=== PATIENT | female | born 1960 | race Caucasian/White ===

== ENCOUNTER 2017-08-16 15:06 | Emergency (ER) | payer OTHER ==
[~2017-08-16] VITALS: Ht 154.9 cm; Wt 54.4 kg
[~2017-08-16 15:06] MED LIST: ACET325; ALBU90OI INH; ALBU90OI6 INH; AZIT250 PO; AZIT500 PO; Ativan0.5 MG PO; Augmentin 875-1 EACH PO; B Complete1 EACH; BUDE.5 NEB; BUPR150ER PO; CETI5 PO; CODGUAEL PO; DIAZ10 PO; Duoneb 2.5-0.5 M3 ML INH; FAMO20 PO; FLUO10 PO; FLUSAL2505; FLUSAL2505 INH; GABA100 PO; GUAI600T33 PO; HYDR1TAB94 PO; IBUP800; IBUP800 PO; LORA.5 PO; LORA1 PO; METCAR500 PO; METCAR750 PO; METPRE4DP PO; MIRT15 PO; MONT10T PO; MORP15ER PO; MORP30ER PO; MORP60ER PO; NAC500 MG PO; NICO7 TOP; NYST100SU SS; Norco 5-325 Ta1 EACH PO; OMEP20ER; OXYACE5T PO; Omeprazole20 M1; Omeprazole20 M1 PO; POTCHL20ER PO; PRED10 PO; PRED20; PRED20 PO; PROAIR RESPICL90 MCG INH; PROM25 PO; Prednisone20 MG PO; Prednisone50 MG PO; Robaxin-750750 MG PO; SERT100 PO; TIOT18 INH; TRAM50 PO; Tylenol325 MG PO; Ultram50 MG PO; Ventolin5 MG/1 ML INH; ZYRTEC10 M2 PO; Zithromax250 MG PO
[2017-08-16 15:48] LABS: BASOPHILS ABSOLUTE AUTO 0.05 K/mm3 (0.00-0.23); BASOPHILS PERCENT AUTO 1 % (0-2); EOSINOPHILS PERCENT AUTO 4 % (0-6); Hematocrit 44.9 % (33.0-51.0); Hemoglobin 14.9 g/dL (11.5-16.0); IMMATURE GRAN ABSOLUTE AUTO 0.07 K/mm3 (0.00-0.10); IMMATURE GRAN PERCENT AUTO 1 % (0-1); LYMPHOCYTES ABSOLUTE AUTO 2.93 K/mm3 (0.84-5.20); LYMPHOCYTES PERCENT AUTO 35 % (21-46); MONOCYTES ABSOLUTE AUTO 0.77 K/mm3 (0.16-1.47); MONOCYTES PERCENT AUTO 9 % (4-13); Mean Corpuscular HGB Conc 33.2 g/dL (31.5-36.5); Mean Corpuscular Volume 99 fL (80-100); Mean Platelet Volume 10.7 fL (9.1-12.4); NEUTROPHILS ABSOLUTE AUTO 4.18 K/mm3 (1.96-9.15); NEUTROPHILS PERCENT AUTO 50 % (41-73); Platelet Count 215 K/mm3 (150-400); RDW Coefficient Variation 14.3 % (11.7-14.2); RDW Standard Deviation 51.5 fL (35.1-46.3); Red Blood Cell Count 4.52 M/mm3 (3.80-5.20)
[2017-08-16] MEDS ORDERED: LEVFLO500 PO (16:20)
[2018-06-26] MEDS ORDERED: K-Dur20 MEQ PO (12:17)
[2018-06-26] MEDS ORDERED: MAGOXI400 PO (12:19)
[2018-06-26] MEDS ORDERED: Prednisone20 MG PO (12:19)
== END 2017-08-16 16:35 | disposition home or self-care (01) ==
LOC: ER 15:06
PROVIDERS: Internal Medicine
DX: J44.1 Chronic obstructive pulmonary disease with (acute) exacerbation (principal); F41.9 Anxiety disorder, unspecified; F17.210 Nicotine dependence, cigarettes, uncomplicated; Z79.899 Other long term (current) drug therapy; Z87.01 Personal history of pneumonia (recurrent); Z85.89 Personal history of malignant neoplasm of other organs and systems
CPT/HCPCS: 36415; 71020; 85025; 94640; 99283; J1100

== ENCOUNTER 2017-08-20 21:10 | Emergency (ER) | payer OTHER ==
[~2017-08-20] VITALS: Ht 154.9 cm; Wt 52.2 kg
[~2017-08-20 21:10] MED LIST changes: +LEVFLO500 PO
[2017-08-20 21:36] LABS: BASOPHILS ABSOLUTE AUTO 0.01 K/mm3 (0.00-0.23); BASOPHILS PERCENT AUTO 0 % (0-2); EOSINOPHILS ABSOLUTE AUTO 0.01 K/mm3 (0.00-0.68); EOSINOPHILS PERCENT AUTO 0 % (0-6); Hematocrit 48.8 % (33.0-51.0); Hemoglobin 16.5 g/dL (11.5-16.0); IMMATURE GRAN ABSOLUTE AUTO 0.02 K/mm3 (0.00-0.10); IMMATURE GRAN PERCENT AUTO 0 % (0-1); LYMPHOCYTES ABSOLUTE AUTO 2.39 K/mm3 (0.84-5.20); LYMPHOCYTES PERCENT AUTO 37 % (21-46); MONOCYTES ABSOLUTE AUTO 0.66 K/mm3 (0.16-1.47); MONOCYTES PERCENT AUTO 10 % (4-13); Mean Corpuscular HGB 33.2 pg (26.0-34.0); Mean Corpuscular HGB Conc 33.8 g/dL (31.5-36.5); Mean Corpuscular Volume 98 fL (80-100); Mean Platelet Volume 10.7 fL (9.1-12.4); NEUTROPHILS ABSOLUTE AUTO 3.37 K/mm3 (1.96-9.15); NEUTROPHILS PERCENT AUTO 52 % (41-73); Platelet Count 293 K/mm3 (150-400); RDW Coefficient Variation 14.3 % (11.7-14.2); RDW Standard Deviation 51.3 fL (35.1-46.3); Red Blood Cell Count 4.97 M/mm3 (3.80-5.20); White Blood Cell Count 6.46 K/mm3 (4.00-11.30)
[2017-08-20 21:58] LABS: Alanine Aminotransfer (ALT/SGP 55 U/L (12-78); Albumin, Blood 3.8 g/dL (3.4-5.0); Albumin/Globulin Ratio 0.9 (0.8-1.8); Alk Phos 129 U/L (50-136); Anion Gap 6 mmol/L (6-16); Aspartate Aminotrans (AST/SGOT 52 U/L (12-37); Bilirubin, Total 0.3 mg/dL (0.1-1.0); Blood Urea Nitrogen 3 mg/dL (8-24); Bun/Creatinine Ratio 5.6 (12.0-20.0); CO2, Blood 33 mmol/L (21-32); Calcium, Blood 8.6 mg/dL (8.5-10.1); Chloride, Blood 102 mmol/L (98-108); Creatinine, Blood 0.53 mg/dL (0.40-1.00); Ethanol (Alcohol), Blood, Med 308 mg/dL; Globulin, Blood 4.4 g/dL (2.2-4.0); Glomerular Filtration Rate >60 (60-); Glucose, Blood 119 mg/dL (70-99); Potassium, Blood 3.8 mmol/L (3.5-5.5); Sodium, Blood 141 mmol/L (136-145); Total Protein, Blood 8.2 g/dL (6.4-8.2)
[2017-08-20] MEDS ORDERED: Prednisone50 MG PO (23:03)
[2017-08-20] MEDS ORDERED: ARTIFICIAL TEAR15 ML BOTHEYES (23:03)
[2017-08-20] MEDS ORDERED: VALACYCLOVIR1000 MG PO (23:03)
[2018-06-26] MEDS ORDERED: K-Dur20 MEQ PO (12:17)
[2018-06-26] MEDS ORDERED: Prednisone20 MG PO (12:19)
[2018-06-26] MEDS ORDERED: MAGOXI400 PO (12:19)
== END 2017-08-20 23:50 | disposition home or self-care (01) ==
LOC: ER 21:10
PROVIDERS: Emergency Medicine
DX: G51.0 Bell's palsy (principal); J44.9 Chronic obstructive pulmonary disease, unspecified; Z88.8 Allergy status to other drugs, medicaments and biological substances; Z79.899 Other long term (current) drug therapy; Z79.2 Long term (current) use of antibiotics; F41.9 Anxiety disorder, unspecified; Z85.44 Personal history of malignant neoplasm of other female genital organs; F17.210 Nicotine dependence, cigarettes, uncomplicated; Z87.01 Personal history of pneumonia (recurrent)
CPT/HCPCS: 36415; 80053; 82947; 85025; 94640; 99284; G0480

== ENCOUNTER 2017-11-10 08:04 | Emergency (ER) | payer OTHER ==
[~2017-11-10] VITALS: Ht 154.9 cm; Wt 54.4 kg
[~2017-11-10 08:04] MED LIST changes: +ARTIFICIAL TEAR15 ML BOTHEYES; +VALACYCLOVIR1000 MG PO
[2017-11-10] MEDS ORDERED: NAC500 MG PO (08:37)
[2017-11-10] MEDS ORDERED: DOXY100T53 (08:38)
[2017-11-10] MEDS ORDERED: Ultram50 MG PO (09:02)
[2018-06-26] MEDS ORDERED: K-Dur20 MEQ PO (12:17)
[2018-06-26] MEDS ORDERED: MAGOXI400 PO (12:19)
[2018-06-26] MEDS ORDERED: Prednisone20 MG PO (12:19)
== END 2017-11-10 09:20 | disposition home or self-care (01) ==
LOC: ER 08:04
DX: S30.0XXA Contusion of lower back and pelvis, initial encounter (principal); J44.9 Chronic obstructive pulmonary disease, unspecified; F32.9 Major depressive disorder, single episode, unspecified; K21.9 Gastro-esophageal reflux disease without esophagitis; F17.210 Nicotine dependence, cigarettes, uncomplicated; Z79.899 Other long term (current) drug therapy; Z79.51 Long term (current) use of inhaled steroids; Y08.89XA Assault by other specified means, initial encounter
CPT/HCPCS: 99282

== ENCOUNTER 2017-12-08 13:57 | Emergency (ER) | payer OTHER ==
[~2017-12-08] VITALS: Ht 154.9 cm; Wt 54.4 kg
[~2017-12-08 13:57] MED LIST changes: +DOXY100T53
[2017-12-08 14:53] LABS: BASOPHILS PERCENT AUTO 1 % (0-2); EOSINOPHILS ABSOLUTE AUTO 0.09 K/mm3 (0.00-0.68); EOSINOPHILS PERCENT AUTO 1 % (0-6); Hematocrit 47.2 % (33.0-51.0); Hemoglobin 15.7 g/dL (11.5-16.0); IMMATURE GRAN ABSOLUTE AUTO 0.03 K/mm3 (0.00-0.10); IMMATURE GRAN PERCENT AUTO 0 % (0-1); LYMPHOCYTES ABSOLUTE AUTO 3.42 K/mm3 (0.84-5.20); LYMPHOCYTES PERCENT AUTO 33 % (21-46); MONOCYTES ABSOLUTE AUTO 1.06 K/mm3 (0.16-1.47); MONOCYTES PERCENT AUTO 10 % (4-13); Mean Corpuscular HGB 32.8 pg (26.0-34.0); Mean Corpuscular HGB Conc 33.3 g/dL (31.5-36.5); Mean Corpuscular Volume 99 fL (80-100); Mean Platelet Volume 10.8 fL (9.1-12.4); NEUTROPHILS ABSOLUTE AUTO 5.83 K/mm3 (1.96-9.15); NEUTROPHILS PERCENT AUTO 55 % (41-73); Platelet Count 272 K/mm3 (150-400); RDW Coefficient Variation 13.7 % (11.7-14.2); Red Blood Cell Count 4.79 M/mm3 (3.80-5.20); White Blood Cell Count 10.53 K/mm3 (4.00-11.30)
[2017-12-08 15:29] LABS: Albumin, Blood 3.5 g/dL (3.4-5.0); Alk Phos 117 U/L (50-136); Anion Gap 9 mmol/L (6-16); Aspartate Aminotrans (AST/SGOT 51 U/L (12-37); Bilirubin, Total 0.4 mg/dL (0.1-1.0); Blood Urea Nitrogen 5 mg/dL (8-24); Bun/Creatinine Ratio 8.3 (12.0-20.0); CO2, Blood 26 mmol/L (21-32); Calcium, Blood 8.5 mg/dL (8.5-10.1); Chloride, Blood 107 mmol/L (98-108); Glomerular Filtration Rate >60 (60-); Glucose, Blood 109 mg/dL (70-99); Potassium, Blood 3.9 mmol/L (3.5-5.5); Sodium, Blood 142 mmol/L (136-145)
[2017-12-08 15:56] LABS: Alanine Aminotransfer (ALT/SGP 40 U/L (12-78); Albumin/Globulin Ratio 0.8 (0.8-1.8); Globulin, Blood 4.2 g/dL (2.2-4.0); Total Protein, Blood 7.7 g/dL (6.4-8.2)
[2017-12-08] MEDS ORDERED: Prednisone20 MG PO (16:16)
== END 2017-12-08 16:55 | disposition home or self-care (01) ==
LOC: ER 13:57
PROVIDERS: Emergency Medicine
DX: J44.1 Chronic obstructive pulmonary disease with (acute) exacerbation (principal); Z88.8 Allergy status to other drugs, medicaments and biological substances; Z79.899 Other long term (current) drug therapy; F41.9 Anxiety disorder, unspecified; F17.210 Nicotine dependence, cigarettes, uncomplicated
CPT/HCPCS: 36415; 71045; 80053; 85025; 93005; 93010; 94640; 99283

== ENCOUNTER 2018-01-25 16:55 | Emergency (ER) | payer OTHER ==
[~2018-01-25] VITALS: Ht 154.9 cm; Wt 55.3 kg
== END 2018-01-25 17:42 | disposition left against medical advice (07) ==
LOC: ER 16:55
DX: S00.83XA Contusion of other part of head, initial encounter (principal); S00.31XA Abrasion of nose, initial encounter; W18.30XA Fall on same level, unspecified, initial encounter; Z88.8 Allergy status to other drugs, medicaments and biological substances; Z79.899 Other long term (current) drug therapy; J44.9 Chronic obstructive pulmonary disease, unspecified; F41.9 Anxiety disorder, unspecified; F17.210 Nicotine dependence, cigarettes, uncomplicated
CPT/HCPCS: 99282

== ENCOUNTER 2018-02-04 16:05 | Emergency (ER) | payer OTHER ==
[~2018-02-04] VITALS: Ht 165.1 cm; Wt 55.3 kg
[2018-02-04] MEDS ORDERED: PARO10 (16:48)
[2018-02-04] MEDS ORDERED: Augmentin 875-1 EACH PO (17:57)
[2018-02-04] MEDS ORDERED: Percocet 5-3251 EACH PO (17:57)
== END 2018-02-04 18:33 | disposition home or self-care (01) ==
LOC: ER 16:05
DX: S51.852A Open bite of left forearm, initial encounter (principal); J44.9 Chronic obstructive pulmonary disease, unspecified; F17.210 Nicotine dependence, cigarettes, uncomplicated; Z88.8 Allergy status to other drugs, medicaments and biological substances; Z79.899 Other long term (current) drug therapy; W54.0XXA Bitten by dog, initial encounter
CPT/HCPCS: 12001; 99283

== ENCOUNTER 2018-02-21 13:52 | Emergency (ER) | payer OTHER ==
[~2018-02-21] VITALS: Ht 154.9 cm; Wt 56.7 kg
[~2018-02-21 13:52] MED LIST changes: +PARO10; +Percocet 5-3251 EACH PO
== END 2018-02-21 14:23 | disposition home or self-care (01) ==
LOC: ER 13:52
DX: S51.852D Open bite of left forearm, subsequent encounter (principal); S51.851D Open bite of right forearm, subsequent encounter; J44.9 Chronic obstructive pulmonary disease, unspecified; F41.9 Anxiety disorder, unspecified; F17.200 Nicotine dependence, unspecified, uncomplicated; Z88.8 Allergy status to other drugs, medicaments and biological substances; Z79.899 Other long term (current) drug therapy

== ENCOUNTER 2018-07-29 10:56 | Inpatient (IN) | payer OTHER ==
[~2018-07-29] VITALS: Ht 154.9 cm; Wt 55.4 kg
[~2018-07-29 10:56] MED LIST changes: +K-Dur20 MEQ PO; +MAGOXI400 PO
[2018-07-29 11:48] LABS: BASOPHILS ABSOLUTE AUTO 0.03 K/mm3 (0.00-0.23); BASOPHILS PERCENT AUTO 1 % (0-2); EOSINOPHILS ABSOLUTE AUTO 0.03 K/mm3 (0.00-0.68); EOSINOPHILS PERCENT AUTO 1 % (0-6); Hematocrit 41.3 % (33.0-51.0); Hemoglobin 13.9 g/dL (11.5-16.0); IMMATURE GRAN ABSOLUTE AUTO 0.02 K/mm3 (0.00-0.10); IMMATURE GRAN PERCENT AUTO 0 % (0-1); LYMPHOCYTES PERCENT AUTO 13 % (21-46); MONOCYTES ABSOLUTE AUTO 0.89 K/mm3 (0.16-1.47); MONOCYTES PERCENT AUTO 15 % (4-13); Mean Corpuscular HGB 34.6 pg (26.0-34.0); Mean Corpuscular HGB Conc 33.7 g/dL (31.5-36.5); Mean Corpuscular Volume 103 fL (80-100); Mean Platelet Volume 10.7 fL (9.1-12.4); NEUTROPHILS ABSOLUTE AUTO 4.19 K/mm3 (1.96-9.15); NEUTROPHILS PERCENT AUTO 70 % (41-73); Platelet Count 216 K/mm3 (150-400); RDW Coefficient Variation 13.8 % (11.7-14.2); RDW Standard Deviation 52.6 fL (35.1-46.3); Red Blood Cell Count 4.02 M/mm3 (3.80-5.20); White Blood Cell Count 5.96 K/mm3 (4.00-11.30)
[2018-07-29 11:53] LABS: Alanine Aminotransfer (ALT/SGP 38 U/L (12-78); Albumin, Blood 3.1 g/dL (3.4-5.0); Albumin/Globulin Ratio 0.8 (0.8-1.8); Alk Phos 143 U/L (50-136); Anion Gap 8 mmol/L (6-16); Aspartate Aminotrans (AST/SGOT 71 U/L (12-37); Bilirubin, Total 0.5 mg/dL (0.1-1.0); Blood Urea Nitrogen 5 mg/dL (8-24); Bun/Creatinine Ratio 8.8 (12.0-20.0); CO2, Blood 29 mmol/L (21-32); Chloride, Blood 105 mmol/L (98-108); Creatinine, Blood 0.57 mg/dL (0.40-1.00); Globulin, Blood 3.7 g/dL (2.2-4.0); Glomerular Filtration Rate >60 (60-); Glucose, Blood 103 mg/dL (70-99); Potassium, Blood 3.2 mmol/L (3.5-5.5); Sodium, Blood 142 mmol/L (136-145); Total Protein, Blood 6.8 g/dL (6.4-8.2); Troponin I <0.015 ng/mL (0.000-0.040)
[2018-07-29 11:56] LABS: Influenza A Negative (NEGATIVE); Influenza B Negative (NEGATIVE)
[2018-07-29] MEDS ORDERED: IBUP800 PO (17:13)
[2018-07-29] MEDS ORDERED: TYLENOL PM PO (17:15)
--- NOTE | 2018-07-29 18:47 | NUR ---
CALLED [facility] PALIATIVE CARE CONSULT
--- NOTE | 2018-07-29 18:49 | NUR ---
PT ADMIT DONE, PT RESTING IN ROOM. EATING DINNER. LUNGS COARSE. NO DISTRESS REPORTED. H/R REG, NO TELE. BED IN LOW POSITION, CALL LITE IN REACH, CALLS APPROP.
[2018-07-29 21:58] LABS: Adenovirus F 40/41 Not Detected (NOT DETECT); Astrovirus Not Detected (NOT DETECT); Campylobacter Sp Not Detected (NOT DETECT); Cryptosporidium Not Detected (NOT DETECT); Cyclospora Cayetanensis Not Detected (NOT DETECT); E. Coli O157 Not Detected (NOT DETECT); Entamoeba Histolytica Not Detected (NOT DETECT); Enteroaggregative E. coli-EAEC Not Detected (NOT DETECT); Enteropathogenic E. coli-EPEC Not Detected (NOT DETECT); Enterotoxigenic E. coli-ETEC Not Detected (NOT DETECT); Giardia Lamblia Not Detected (NOT DETECT); Norovirus GI/GII Not Detected (NOT DETECT); Plesiomonas Shigelloides Not Detected (NOT DETECT); Rotavirus A Not Detected (NOT DETECT); Salmonella Sp Not Detected (NOT DETECT); Sapovirus Not Detected (NOT DETECT); Shiga Toxin-prod E. coli-STEC Not Detected (NOT DETECT); Shigella/Enteroin E. coli-EIEC Not Detected (NOT DETECT); Vibrio Cholerae Not Detected (NOT DETECT); Vibrio Sp Not Detected (NOT DETECT); Yersinia Enterocolitica Not Detected (NOT DETECT)
--- NOTE | 2018-07-30 04:19 | NUR ---
SHIFT SUMMARY NO ACUTE CHANGES THIS SHIFT. LUNG SOUNDS CONTINUE TO BE COARSE T/O. NON PRODUCTIVE COUGH NAGGING COUGH. MEDICATED W/ ROBITUSSIN COUGH SYRUP X 1. PT REPORTED "RAGING HEADACHE" THIS EVENING. MEDICATED W/ TYLENOL 650 MG AND TYLENOL PM GIVEN BEFORE BED. NO SOB NOTED AT REST. SOME MILD SOB W/ EXERTION. REMAINED ON R/A WITH O2 SATS IN THE LOW TO MID 90'S. PT HAD SOME DIFFICULTLY FALLING ASLEEP BUT SLEPT WELL ONCE ASLEEP. OTHERWISE NO ACUTE CHANGES. WILL CONTINUE TO MONITOR AND REPORT TO DAY RN.
[2018-07-30 04:56] LABS: Hemoglobin 12.2 g/dL (11.5-16.0); Mean Corpuscular HGB 34.3 pg (26.0-34.0); Mean Corpuscular HGB Conc 33.9 g/dL (31.5-36.5); Mean Corpuscular Volume 101 fL (80-100); Mean Platelet Volume 10.8 fL (9.1-12.4); Platelet Count 170 K/mm3 (150-400); RDW Coefficient Variation 13.6 % (11.7-14.2); RDW Standard Deviation 51.2 fL (35.1-46.3); Red Blood Cell Count 3.56 M/mm3 (3.80-5.20)
[2018-07-30 05:33] LABS: Alanine Aminotransfer (ALT/SGP 28 U/L (12-78); Albumin, Blood 2.6 g/dL (3.4-5.0); Albumin/Globulin Ratio 0.8 (0.8-1.8); Alk Phos 115 U/L (50-136); Anion Gap 10 mmol/L (6-16); Aspartate Aminotrans (AST/SGOT 37 U/L (12-37); Bilirubin, Total 0.5 mg/dL (0.1-1.0); Blood Urea Nitrogen 4 mg/dL (8-24); Bun/Creatinine Ratio 8.2 (12.0-20.0); CO2, Blood 23 mmol/L (21-32); Calcium, Blood 7.6 mg/dL (8.5-10.1); Chloride, Blood 109 mmol/L (98-108); Creatinine, Blood 0.49 mg/dL (0.40-1.00); Globulin, Blood 3.4 g/dL (2.2-4.0); Glomerular Filtration Rate >60 (60-); Glucose, Blood 184 mg/dL (70-99); Magnesium, Blood 1.3 mg/dL (1.6-2.4); Potassium, Blood 3.5 mmol/L (3.5-5.5); Sodium, Blood 142 mmol/L (136-145)
--- NOTE | 2018-07-30 10:18 | NUR ---
Initial [facility] Care assessment and visit. Pt alert and oriented. She is tearful at times talking about her illness, dependence on others and s/s at present. She reports hurting all over, CACERES, dyspnea and extreme fatigue today and for weeks prior to admission. She is able to get herself to a BSC but feels very weak. She has PT life care planner approx 36 hours a week that helps with meals, care, getting her to appointments and shopping on the days she is there. Pt has shut off worker at [facility]. Orthopedics NurseJoyce joined us at end of visit. Correct phone numbers and contacts obtained from pt and I will get these changes made for records. She reports her son, Don Villeda is her surrogate medical decision maker if needed. His # is [phone]. She has a new phone # of [phone] this week. Also listed as a contact is her friend and Theater Projectionist, Marcella Herzog [phone]. Pt states she normally takes ibuprofen 800 mg tid for pain unrelieved by tylenol but that she was told she cannot have it now due to side effects of increased risk of bleeding and current s/s of coughing up bloody sputum. Pt also asked about the vit B complex she has been on and is not taking currently. Pt was trying to get established with the [facility] clinic in [place] and asked if I could contact them with her current phone #. I will do this today. We discussed advanced care planning briefly after she mentioned her son would be her decision maker. She expressed interest in completing an advanced directive. I gave her the blank forms and asked her to review them in prep for me returning tomorrow to help her complete them at her request. She says she always plans to do them but then leaves the hospital and forgets. Pt cared for her before he of cancer. She lives alone with two dogs. When her caregiver is not available on any given day sometimes friends stop by with food she can microwave and she gets home delivered meals three days a week. I discussed COPD educator with her and she was receptive to that. I entered an order for that during her hospital stay and I believe she would be a good candidate for home follow up too if that is available. She would also be a good candidate for Pulmonary Rehab, which she expressed interest in. She sees Dr Chacon in addition to her PCP but has never done out patient pulmonary rehab that she can remember. CM aware of my conversation and info covered. Will report to RN also. Plan to return tomororw to complete AD/POLST with [place] if she would still like to, assess s/s and offer support. Pt verbalizes motivation to get stronger and be more independent/active. She worries about burdening her son, who has young children.
--- NOTE | 2018-07-30 13:31 | NUR ---
Pt sitting in bed and appeared well taken care of. Pt allowed space to reflect on her life and marriage to late spouse. Exploration done on relationship with spouse and his last few years. 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 Pt unable to be involved in that ministry any further. Processing occurred with pt. Vebal prayer was provided and she verbalized gratitude I will remain available.
--- NOTE | 2018-07-30 19:15 | NUR ---
SHIFT SUMMARY TRISH COMPLAINED OF GENERALIZED PAIN TODAY. TALKED TO DR ANNE, ORDERED PAIN MEDS. SURGICAL SCRUB TECHNOLOGIST SAW PT. IMMODIUM ADDED FOR DIARRHEA (CDIF NEG). HEMOPTYSIS (RT DOING CHEST PHYSIO). ALBUTEROL TREATMENTS MAKING PT VERY 'JITTERY' AND PRN IV ATIVAN ORDERED. MIVF RUNNING. INDEP TO BSC. CHANGED TO REGULAR DIET. WCTM
[2018-07-31 05:04] LABS: BASOPHILS ABSOLUTE AUTO 0.03 K/mm3 (0.00-0.23); BASOPHILS PERCENT AUTO 0 % (0-2); EOSINOPHILS PERCENT AUTO 0 % (0-6); Hematocrit 38.1 % (33.0-51.0); Hemoglobin 12.5 g/dL (11.5-16.0); IMMATURE GRAN ABSOLUTE AUTO 0.14 K/mm3 (0.00-0.10); IMMATURE GRAN PERCENT AUTO 1 % (0-1); LYMPHOCYTES ABSOLUTE AUTO 0.65 K/mm3 (0.84-5.20); LYMPHOCYTES PERCENT AUTO 3 % (21-46); MONOCYTES PERCENT AUTO 3 % (4-13); Mean Corpuscular HGB 34.1 pg (26.0-34.0); Mean Corpuscular HGB Conc 32.8 g/dL (31.5-36.5); Mean Corpuscular Volume 104 fL (80-100); Mean Platelet Volume 11.1 fL (9.1-12.4); NEUTROPHILS ABSOLUTE AUTO 18.52 K/mm3 (1.96-9.15); NEUTROPHILS PERCENT AUTO 93 % (41-73); Platelet Count 193 K/mm3 (150-400); RDW Coefficient Variation 13.8 % (11.7-14.2); RDW Standard Deviation 53.1 fL (35.1-46.3); Red Blood Cell Count 3.67 M/mm3 (3.80-5.20); White Blood Cell Count 19.84 K/mm3 (4.00-11.30)
[2018-07-31 05:30] LABS: Albumin, Blood 2.7 g/dL (3.4-5.0); Anion Gap 9 mmol/L (6-16); Blood Urea Nitrogen 8 mg/dL (8-24); Bun/Creatinine Ratio 16.1 (12.0-20.0); CO2, Blood 24 mmol/L (21-32); Calcium, Blood 7.8 mg/dL (8.5-10.1); Chloride, Blood 105 mmol/L (98-108); Glomerular Filtration Rate >60 (60-); Glucose, Blood 169 mg/dL (70-99); Phosphorus, Blood 2.3 mg/dL (2.5-4.9); Potassium, Blood 3.7 mmol/L (3.5-5.5); Sodium, Blood 138 mmol/L (136-145)
--- NOTE | 2018-07-31 06:32 | NUR ---
SHIFT SUMMARY PT A&OX3. COMPLAINTS OF BACK AND "ALL OVER" PAIN. MEDICATED PAIN PER EMAR WITH GOOD RELIEF. ANXIETY MEDICATION GIVEN PER EMAR. CONTINUES TO COUGH UP SMALL AMOUNT OF BLOOD-TINGED SPUTUM. SLEPT WELL. WILL CONTINUE TO MONITOR.
--- NOTE | 2018-07-31 14:29 | NUR ---
Per pt request, I returned to complete a POLST, Directive to Physicians and appoimtment of health care financial services representative forms with pt. and RN notified of same and POLST left on front of chart for Dr muir. Pt has AD forms in room to be witnessed by her visitors and her health care financial services representative and alternate HC rep when they visit. She will contact Palliative Care when completed so we can fax copies to medical records and her PCP. Pt does not want CPR/chest compressions or shocks. She is agreeable to short term ventilatory support for no more than 2 weeks and artificial feeding by tube for no more than 2 weeks in the event of an acute illness to see if she could improve and return to her current baseline of function and level of health. She named her son Don Villeda as her HC financial services representative and friend, Marcella Herzog as her alternate decision maker if Don is unavailable. She was very specific in her directive and asked that her HC representatives follow her directive to physicians. Pt is alert and oriented. She is less anxious than yesterday and a little somnolent during my visit. She expressed difficulty in adavanced care decision making but really wanted to complete these intruments while here because, "I'll never get to it at home.". Will return tomorrow to assess for s/s and to copy signed forms if available.
--- NOTE | 2018-07-31 14:40 | NUR ---
PATIENT COUGHS UP BLOODY SPUTUM W/ AWARE.
--- NOTE | 2018-07-31 17:23 | NUR ---
PATIENT ALERT AND ORIENTED. MEDICATED FOR PAIN "ALL OVER" WITH GOOD RESULTS. MEDICATED FOR "JITTERS" WITH GOOD RESULTS. IV INFUSING RT A/C. COUGHS UP BLDY SPUTUM. STANDBY ASSIST. BED IN LOW POSTION. OXYGEN ON W/SATS LOW 90%. WILL CONTINUE TO MONITOR.
--- NOTE | 2018-08-01 04:12 | NUR ---
SHIFT SUMMARY PATIENT HAD NO ACUTE CHANGES OBSERVED DURING THE SHIFT. AXOX 3 AND SBA. ON 2L O2 NC. VSS/AFEBRILE. PATIENT REPORTS GENERAL PAIN AND ANXIETY X 2 AND RECEIVED ATIVAN AND FENTANYL PER EMAR. PATIENT REPORTS SHE IS ABLE TO SLEEP. PIV REMAINS INTACT. SOLU-MEDROL GIVEN PER EMAR. RT PLACED VEST ON PATIENT FOR TX WITH HX OF CYSTIC FIBROSIS. COOPERATIVE WITH CARE. CALL LIGHT IN REACH. BED IN LOWEST POSITION. WILL CONTINUE TO MONITOR UNTIL DAY SHIFT NURSE ASSUMES CARE.
[2018-08-01 05:14] LABS: BASOPHILS ABSOLUTE AUTO 0.06 K/mm3 (0.00-0.23); BASOPHILS PERCENT AUTO 0 % (0-2); EOSINOPHILS PERCENT AUTO 0 % (0-6); Hematocrit 39.1 % (33.0-51.0); Hemoglobin 12.7 g/dL (11.5-16.0); IMMATURE GRAN ABSOLUTE AUTO 0.53 K/mm3 (0.00-0.10); IMMATURE GRAN PERCENT AUTO 3 % (0-1); LYMPHOCYTES ABSOLUTE AUTO 0.67 K/mm3 (0.84-5.20); LYMPHOCYTES PERCENT AUTO 3 % (21-46); MONOCYTES ABSOLUTE AUTO 0.58 K/mm3 (0.16-1.47); MONOCYTES PERCENT AUTO 3 % (4-13); Mean Corpuscular HGB 33.9 pg (26.0-34.0); Mean Corpuscular HGB Conc 32.5 g/dL (31.5-36.5); Mean Corpuscular Volume 104 fL (80-100); Mean Platelet Volume 11.3 fL (9.1-12.4); NEUTROPHILS ABSOLUTE AUTO 18.19 K/mm3 (1.96-9.15); NEUTROPHILS PERCENT AUTO 91 % (41-73); NRBC ABSOLUTE 0.02 K/mm3 (0.00-0.02); NRBC Auto 0.1 /100 WBC (0.0-0.2); Platelet Count 180 K/mm3 (150-400); RDW Coefficient Variation 13.7 % (11.7-14.2); RDW Standard Deviation 52.6 fL (35.1-46.3); Red Blood Cell Count 3.75 M/mm3 (3.80-5.20); White Blood Cell Count 20.03 K/mm3 (4.00-11.30)
[2018-08-01 05:30] LABS: Albumin, Blood 2.6 g/dL (3.4-5.0); Anion Gap 7 mmol/L (6-16); Blood Urea Nitrogen 13 mg/dL (8-24); Bun/Creatinine Ratio 18.2 (12.0-20.0); CO2, Blood 27 mmol/L (21-32); Calcium, Blood 8.2 mg/dL (8.5-10.1); Chloride, Blood 104 mmol/L (98-108); Creatinine, Blood 0.71 mg/dL (0.40-1.00); Glomerular Filtration Rate >60 (60-); Glucose, Blood 172 mg/dL (70-99); Phosphorus, Blood 3.3 mg/dL (2.5-4.9); Potassium, Blood 3.7 mmol/L (3.5-5.5); Sodium, Blood 138 mmol/L (136-145)
--- NOTE | 2018-08-01 17:23 | NUR ---
PATIENT RECIEVED BREATHING TREATMENTS THROUGHOUT SHIFT. MEDICATIONS GIVEN FOR PAIN AND ANXIETY R/T RESPIRATORY DISTRESS. NEW IV PLACED IN RIGHT WRIST, PREVIOUS IV WAS LEAKING AND THEN REMOVED. UP TO COMMODE WITH SBA. CALL LIGNT IN REACH
--- NOTE | 2018-08-01 21:38 | NUR ---
RT COMPLETE VEST CPT. PATIENT RESTING IN BED. CALL LIGHT IN REACH.
--- NOTE | 2018-08-02 04:06 | NUR ---
SHIFT SUMMARY PATIENT HAD NO ACUTE CHANGES OBSERVED DURING THE SHIFT. AXO X3 AND INDEPENDENT TO BSC. PIV REMAINS INTACT. ON 3L O2 NC. STILL COUGHING UP BLOODY SPUTUM AFTER RT SETS UP CPT FOR HX CYSTIC FIBROSIS. RECEIVED BREATHING TX BY RT. PATIENT REPORTS GENERAL PAIN AND ANXIETY AND RECEIVED FENTANYL AND ATIVAN PER EMAR. REPORTS RELIEF FOR THREE TO FOUR HOURS. VSS/AFEBRILE. COOPERATIVE WITH CARE. CALL LIGHT IN REACH. BED IN LOWEST POSITION. WILL CONTINUE TO MONITOR UNTIL DAY SHIFT NURSE ASSUMES CARE.
[2018-08-02 05:02] LABS: BASOPHILS PERCENT AUTO 1 % (0-2); EOSINOPHILS PERCENT AUTO 0 % (0-6); Hematocrit 38.1 % (33.0-51.0); Hemoglobin 12.4 g/dL (11.5-16.0); IMMATURE GRAN ABSOLUTE AUTO 0.79 K/mm3 (0.00-0.10); IMMATURE GRAN PERCENT AUTO 5 % (0-1); LYMPHOCYTES ABSOLUTE AUTO 0.63 K/mm3 (0.84-5.20); LYMPHOCYTES PERCENT AUTO 4 % (21-46); MONOCYTES ABSOLUTE AUTO 0.72 K/mm3 (0.16-1.47); MONOCYTES PERCENT AUTO 5 % (4-13); Mean Corpuscular HGB 33.5 pg (26.0-34.0); Mean Corpuscular HGB Conc 32.5 g/dL (31.5-36.5); Mean Corpuscular Volume 103 fL (80-100); Mean Platelet Volume 11.6 fL (9.1-12.4); NEUTROPHILS ABSOLUTE AUTO 13.15 K/mm3 (1.96-9.15); NEUTROPHILS PERCENT AUTO 86 % (41-73); NRBC ABSOLUTE 0.02 K/mm3 (0.00-0.02); NRBC Auto 0.1 /100 WBC (0.0-0.2); Platelet Count 165 K/mm3 (150-400); RDW Coefficient Variation 13.5 % (11.7-14.2); RDW Standard Deviation 51.2 fL (35.1-46.3); White Blood Cell Count 15.39 K/mm3 (4.00-11.30)
[2018-08-02 05:36] LABS: Albumin, Blood 2.5 g/dL (3.4-5.0); Anion Gap 8 mmol/L (6-16); Blood Urea Nitrogen 14 mg/dL (8-24); Bun/Creatinine Ratio 27.9 (12.0-20.0); CO2, Blood 29 mmol/L (21-32); Calcium, Blood 8.1 mg/dL (8.5-10.1); Chloride, Blood 101 mmol/L (98-108); Glomerular Filtration Rate >60 (60-); Glucose, Blood 170 mg/dL (70-99); Phosphorus, Blood 3.6 mg/dL (2.5-4.9); Potassium, Blood 3.7 mmol/L (3.5-5.5); Sodium, Blood 138 mmol/L (136-145)
--- NOTE | 2018-08-02 11:15 | NUR ---
Visited pt again today. She is somnolent sitting up in bed. She states her breathing is better and pain controlled at present. She has a specimen cup on her table with blood tinged sputum in it. Pt has bronciectasis, COPD and pulmonary fibrosis. She is agreeable to [place] on d/c. has signed POLST we completed this weekend and Pt was able to get one witness to sign the AD we filled out on Thursday. Her two surrogate decision makers have not been in to sign acceptance of that responsibility. Copies made of both and both faxed to medical records. Spoke to and Carmelo RT re: Pulmonary Rehab referral on d/c. Information re: local resources and OHP provided to pt at her request for a family friend moving to the state. Facility Maintenance Technician was working on obtaining additional lawn care specialist hours with [employer]. Results of that unknown. Will cont to follow with CM.
--- NOTE | 2018-08-02 17:48 | NUR ---
SHIFT SUMMARY PT INDEPENDENT IN ROOM. RECEIVING CPT FROM RT FOR AID IN REMOVAL OF DRAINAGE FROM LUNGS. SOB WITH EXERTION BUT IMPROVING. RECEIVED A HOME O2 EVAL THIS AFTERNOON. MEDICATED FOR GENERALIZED PAIN WITH HELP.
[2018-08-03 05:20] LABS: Hematocrit 39.9 % (33.0-51.0); Hemoglobin 13.1 g/dL (11.5-16.0); Mean Corpuscular HGB 33.6 pg (26.0-34.0); Mean Corpuscular HGB Conc 32.8 g/dL (31.5-36.5); Mean Corpuscular Volume 102 fL (80-100); Mean Platelet Volume 11.4 fL (9.1-12.4); NRBC ABSOLUTE 0.03 K/mm3 (0.00-0.02); NRBC Auto 0.2 /100 WBC (0.0-0.2); Platelet Count 156 K/mm3 (150-400); RDW Coefficient Variation 13.6 % (11.7-14.2); RDW Standard Deviation 50.9 fL (35.1-46.3)
[2018-08-03 05:40] LABS: BASOPHILS PERCENT MAN 0 % (0-2); EOSINOPHILS PERCENT MAN 0 % (0-6); LYMPHOCYTES PERCENT MAN 5 % (21-46); MONOCYTES PERCENT MAN 5 % (4-13); MYELOCYTE PERCENT MAN 5 % (0-0); NEUTROPHILS ABSOLUTE MAN 11.98 K/mm3 (1.96-9.15); SEG NEUTROPHILS PERCENT MAN 85 % (41-73); TOTAL CELLS COUNTED 100
--- NOTE | 2018-08-03 07:50 | NUR ---
SHIFT SUMMARY: PATIENT IS A&OX4, COMPLIANTS OF GENERALIZED PAIN AND JITTERY ANXIOUS FELLING FROM IV SOLUMEDROL ADMIN. PAIN AND ANXIETY. PATIENT IS MEDICATED PER MAR WITH GOOD EFFECT WITH ATIVAN PRN PER CIWA SCALE. UP TO BSC INDEPENDENTLY, SOB WITH ACTIVITY.
--- NOTE | 2018-08-03 23:31 | NUR ---
HEMOPTOSIS: PATIENT HAS SIGNIFICANT AMOUNT OF HEMOPTOSIS AND PARIENT IS ON LOVENOX Q DAY. TRANSCRIPT EVALUATOR DEBI BAKER IS NOTIFIED, WOULD HE WANT LOVENOX STOPPED, NO ORDER TO SYOP LOVENOX OBTAINED AT THIS TIME.
--- NOTE | 2018-08-04 08:01 | NUR ---
SHIFT SUMMARY: PATIENT IS A&OX4, CONTINUES TO REPORT GENERALIZED PAIN AND ANXIETY WITH JITTERS. " THE STERIODS ALWAYS MAKE ME JITTERY". PATIENT WAS GIVEN IV FENTANY AND ATIVAN WERE GIVEN WITH GOOD EFFECT X3. PATIENT CONTINUES TO DUMP GLASSES OF SODA AND WATER IN HER BED AND HAS SPEWING HEMOPTOSIS. LINEN CHANGE DONE X THREE. VS ARE STABLE, WILL CONTINUE TO MONITOR.
--- NOTE | 2018-08-04 19:44 | NUR ---
SHIFT SUMMARY PT WAS DROWSY AND SLEEPY TODAY, YET STATED SHE WAS STILL IN A LOT OF PAIN. THE IV FENTANYL WAS DISCONTINUED AND RN TRIED TO CONTROL PT'S PAIN LEVEL WITH THE IBUPROFEN AND TYLENOL PER OCT. PT STATED IT WASN'T HELPING HER PAIN ENOUGH AND RN TALKED TO BOTH DR STANTON AND DR HERNÁNDEZ TWICE ABOUT PT'S PAIN. TRAMADOL WAS ORDERED, BUT PT STATED SHE THINKS SHE HALLUCINATED WHEN SHE TOOK THAT MEDICATION A YEAR AGO AT A HOSPITAL. EVENTUALLY ONE DOSE OF FENTANYL WAS ORDERED FOR PT TO HAVE TONIGHT. PT DID WORK WITH PT AND GOT UP TO THE CHAIR ONE TIME TODAY. PT UP WITH 1 ASSIST, BUT ABLE TO STAND AND PIVOT ON HER OWN TO THE BSC. PT STILL COUGHING UP SPUTUM, SOME OF WHICH IS RED/BLOODY. MDS WERE UPDATED ABOUT THAT.
[2018-08-04 22:44] LABS: Source, Urine Clean Catch
[2018-08-04 22:51] LABS: Bilirubin, Urine Neg (Neg); Blood, Urine Neg (Neg); Glucose Qualitative, Urine Neg (Neg); Ketones, Urine Neg (Neg); Leukocyte Esterase, Urine 1+ (Neg); Nitrite, Urine Neg (Neg); Protein, Urine Neg (Neg); Urobilinogen, Urine NORM (Normal)
[2018-08-04 22:52] LABS: Appearance, Urine Clear (Clear); Color, Urine Yellow (P-Yellow)
[2018-08-04 22:58] LABS: Bacteria Not Seen /hpf; Red Blood Cells, Urine Rare /hpf (0-2); Squamous Epithelial Cells Few /hpf (Few); White Blood Cells, Urine Not Seen /hpf (0-5)
--- NOTE | 2018-08-05 03:16 | NUR ---
PAIN: PATIENT CONTINUES TO HAVE GENERALIZED PAIN 8-9/10 AT START OF SHIFT. PATIENT HAS A ONE TIME ORDEWR OF FENTANYL BUT WANTS TO HAVE THAT WHEN SHE IS READY FOR SLEEP. WHEN FENTANYL WAS PILLED IT WAS MISTAKENLY PILLED OUT OF PIXIS ON THE PATIENT IN ROOM 334. 25 MCG WAS GIVEN TO THIS PATIENT @ 2300 PER HER REQUEST, 75 MCG WERE WAISTED ON THE PROFILE OF PATIENT IN 334. PHARMACY WAS NOTIFIED.
[2018-08-05 04:58] LABS: Hematocrit 40.5 % (33.0-51.0); Hemoglobin 13.2 g/dL (11.5-16.0); Mean Corpuscular HGB 33.4 pg (26.0-34.0); Mean Corpuscular HGB Conc 32.6 g/dL (31.5-36.5); Mean Corpuscular Volume 103 fL (80-100); Mean Platelet Volume 11.5 fL (9.1-12.4); NRBC ABSOLUTE 0.03 K/mm3 (0.00-0.02); NRBC Auto 0.2 /100 WBC (0.0-0.2); Platelet Count 175 K/mm3 (150-400); RDW Coefficient Variation 13.3 % (11.7-14.2); RDW Standard Deviation 50.7 fL (35.1-46.3); Red Blood Cell Count 3.95 M/mm3 (3.80-5.20); White Blood Cell Count 14.92 K/mm3 (4.00-11.30)
[2018-08-05 06:45] LABS: BAND PERCENT MAN 1 % (0-8); BASOPHILS PERCENT MAN 0 % (0-2); EOSINOPHILS PERCENT MAN 0 % (0-6); LYMPHOCYTES ABSOLUTE MAN 0.74 K/mm3 (0.84-5.20); LYMPHOCYTES PERCENT MAN 5 % (21-46); METAMYELOCYTE ABSOLUTE MAN 0.59 K/mm3 (0.00-0.00); METAMYELOCYTE PERCENT MAN 4 % (0-0); MONOCYTES ABSOLUTE MAN 1.04 K/mm3 (0.16-1.47); MONOCYTES PERCENT MAN 7 % (4-13); MYELOCYTE ABSOLUTE MAN 0.29 K/mm3 (0.00-0.00); MYELOCYTE PERCENT MAN 2 % (0-0); NEUTROPHILS ABSOLUTE MAN 12.23 K/mm3 (1.96-9.15); SEG NEUTROPHILS PERCENT MAN 81 % (41-73); TOTAL CELLS COUNTED 100
--- NOTE | 2018-08-05 19:19 | NUR ---
SHIFT SUMMARY- PT AXO X4. PT C/O GENERALIZED PAIN AND ANXIETY. MEDS GIVEN PER EMAR. DENIES N/V. DENIES SOB. RESP E/U ON 3L O2 NC. INDEPENDENT TO THE BSC. PT REPORTS DIFFICULTY SWALLOWING. DR. STANTON ORDERED SWALLOW EVAL. PT PLACED ON SOFT MECH DIET. PT REPORTS SOFT MECH DIET HARDER TO SWALLOW THAN REGULAR. DR. STANTON NOTIFIED. ORDERED REGULAR DIET. PT REPORTS LESS BLOOD IN HER SPUTUM. DR. VALENCIA. MEDS WHOLE IN APPLESAUCE. NO OTHER SIGNIFICANT CHANGES THIS SHIFT.
--- NOTE | 2018-08-06 04:35 | NUR ---
CUT TOBACCO BULKER SUMMARY NO ACUTE CHANGES THIS SHIFT. PT AAOX3 AND PLEASANT. INDEPENDENT TO BSC. BREATHES EASY AT REST BUT DOES HAVE SOME SOB WITH EXERTION. CONTINUED IV SOLUMEDROL. TREATED CHRONIC PAIN WITH MEDS PER EMAR, ALSO ATIVAN X1 FOR SOME ANXIOUSNESS BEFORE BED. VSS, WILL CONTINUE TO MONITOR.
[2018-08-06 10:40] LABS: pH Blood Arterial 7.39 (7.35-7.45)
--- NOTE | 2018-08-06 18:58 | NUR ---
SHIFT SUMMARY- PT AXO X3. PT C/O GENERALIZED PAIN AND ANXIETY. MEDS GIVEN PER EMAR. DENIES SOB AT REST. DYSPNEA UPON EXERTION. PT RECIEVED BREATHING TXTS TODAY. DENIES N/V. INDEPENDENT TO THE BSC. NO OTHER SIGNIFICANT CHANGES THIS SHIFT.
--- NOTE | 2018-08-07 04:38 | NUR ---
SHIFT SUMMARY PT CONTINUES TO REPORT ANXIETY, ESPECIALLY WITH BREATHING TX'S. MEDICATED W/ ATIVAN PER ORDER. ONE DOSE OF IV AND ONE DOSE OF PO. IV ACCESS LOST THIS EVENING. DR ROB NOTIFIED. NEW ORDER TO HAVE ATIVAN SWITCHED OVER TO PO AND NO IV ACCESS NEEDED. LUNGS CONTINUE TO SOUND COARSE T/O W/ RHONCHI. PT REQUIRING 2-3 L O2 NC TO KEEP O2 SATS > 90%. PT REPORTS CHRONIC GENERALIZED PAIN. MEDICATED X3 WITH OXYCODONE ORDERED. OTHERWISE NO ACUTE CHANGES. WILL CONTINUE TO MONITOR AND REPORT TO DAY RN.
--- NOTE | 2018-08-07 16:32 | NUR ---
SHIFT SUMMARY- PT A/OX4, INDEP UP TO BSC. PT MEDICATE T/O SHIFT WITH PERCOCET AND XANAX. PT REPORTS PAIN "ALL OVER". LS COARSE AND RHONCHI T/O, ON 3L N/C PT REPORTS SHE DOES NOT WEAR OXYGEN AT HOME, PT RECEIVING CPT. PRODUCTIVE COUGH. POSS D/C HOME THURSDAY. NO OTHER ACUTE CHANGES THIS SHIFT.
--- NOTE | 2018-08-08 04:06 | NUR ---
PT C/O EPISODE OF HEMOPTYSIS THAT WAS UNWITNESSED BY RN BUT SHE ADMITS TO HAVING HAD THIS MULTIPLE TIMES BEFORE. SHE RECIEVES CPT AND LUNGS REMAIN COARSE W/RHONCHI T/O. NO ACUTE CHANGES AND PT DENIES S/S DISTRESS. WILL CONTINUE TO MONITOR.
--- NOTE | 2018-08-08 06:39 | NUR ---
SUMMARY: A/OX4, CALLS APPROPRIATELY AND INDEPENDENT TO BSC. SHE WAS MEDICATED THIS SHIFT W/X2 DOSES OF OXYCODONE AND ATIVAN FOR TOLERABLE CONTROL OF "ALLOVER PAIN" AND ACCOMPANIED ANXIETY. LS CONTINUE COARSE W/RHONCHI AND PT HAS BEEN HAVING INTERMITTEN COUGHING FITS W/HEMOPTYSIS OBSERVED. SPUTUM IS THICK AND DARK RED/BROWN. SHE REMAINS ON 3L O2 VIA NC W/SPO2 WNL BUT REPORTS THAT O2 IS NOT REQUIRED AT HOME. CPT BEING RECIEVED PER RT AND PUMONOLOGY () HAS BEEN CONSULTING. NO ACUTE CHANGES, VSS/AFEBRILE. WILL MONITOR AND REPORT TO DAY RN. POSSIBLE D/C THURSDAY W/OUPATIENT F/U.
--- NOTE | 2018-08-08 18:51 | NUR ---
SHIFT SUMMARY PT A&OX4. ANXIOUS AT TIME, COOPERATIVE WITH CARE. PT RESTING IN BED DURING SHIFT. IND IN ROOM. PT REPORTS GENERALIZED PAIN T/O, MEDICATED PER EMAR. PT SOB WITH EXERTION AND WHEN SHE TAKE O2 OFF, ON 2-3L T/O SHIFT, COARSE T/O, >90% ON O2, WHEN O2 OFF MID 80'S. PT RECEIVING BREATHING TREATMENTS AND CPT. PT REPORTS DARK RED/BROWN HEMOPTYSIS. PT DENIES N/V DURING SHIFT. MEDICATED WITH ATIVAN X2 FOR ANXIETY. VSS. NO OTHER ACUTE CHANGES NOTED DURING SHIFT. WILL CONTINUE TO MONITOR UNTIL REPORT GIVEN TO ONCOMING RN.
--- NOTE | 2018-08-09 04:04 | NUR ---
SHIFT SUMMARY PT A/O. INDEPENDENT TO THE RESTROOM. MINIMAL SOB W/ EXERTION. LUNG SOUNDS COARSE T/O BUT SLOWLY IMPROVING. BREATHING TX NEEDED. PT HAS CHRONIC GENERALIZED PAIN AND ANXIETY. MEDICATED X 2 W/ 1 TAB OXYCODONE AND X 2 W/ 1 MG PO ATIVAN. PT REPORTS THAT HER ANXIETY IS WORSE DURING OR JUST AFTER HER BREATHING TX'S. PT DOES HAVE OCCASSIONAL MOSTLY NON PRODUCTIVE NAGGING COUGH. NO ACUTE CHANGES THIS SHIFT. PLAN FOR PT TO D/C HOME TODAY AND GET OUTPATIENT PULMONARY REHAB.
[2018-08-09] MEDS ORDERED: IBUP600 PO (10:37)
[2018-08-09] MEDS ORDERED: Ventolin5 MG/1 ML INH (10:37)
[2018-08-09] MEDS ORDERED: BUDE.25 NEB (10:41)
[2018-08-09] MEDS ORDERED: Mucinex600 MG (10:42)
[2018-08-09] MEDS ORDERED: NIFE30ER PO (10:44)
[2018-08-09] MEDS ORDERED: SACC250C (10:45)
[2018-08-09] MEDS ORDERED: PRED10 (10:50)
[2018-08-09 14:07] LABS: ANA DIRECT Negative (Negative); ANTIMYELOPEROXIDASE (MPO) ABS <9.0 U/mL (0.0-9.0); ANTIPROTEINASE 3 (PR-3) ABS <3.5 U/mL (0.0-3.5); ATYPICAL PANCA <1:20 titer (Neg:<1:20); CYTOPLASMIC (C-ANCA) <1:20 titer (Neg:<1:20); PERINUCLEAR (P-ANCA) <1:20 titer (Neg:<1:20)
--- NOTE | 2018-08-09 16:01 | NUR ---
SHIFT SUMMARY/DC PT HAS HAD NO ACUTE CHANGES THIS SHIFT, MEDICATED 1X FOR PAIN, 1X FOR ANXIETY, NO OTHER COMPLAINTS OF ANY KIND. O2 WAS DELIVERED AT 1500, REVIEWED DC INSTRUCTIONS W/PT AND DISCUSSED SMOKING CESSATION. PT WAS TRANSPORTED VIA W/C, TO [place] IN PRIVATE VEHICLE @ 1510.
== END 2018-08-09 15:11 | disposition home or self-care (01) | DRG 193 ==
LOC: ER 10:56 → MEDS 15:13 → ENPENDDIS 08-09 10:16 → MEDS 08-09 15:11
PROVIDERS: Emergency Medicine; Hospitalist; Internal Medicine Critical Care Medicine; ADMIT Internal Medicine
DX: J18.0 Bronchopneumonia, unspecified organism (principal); J96.21 Acute and chronic respiratory failure with hypoxia; E84.0 Cystic fibrosis with pulmonary manifestations; J44.1 Chronic obstructive pulmonary disease with (acute) exacerbation; R04.2 Hemoptysis; B19.20 Unspecified viral hepatitis C without hepatic coma; F17.210 Nicotine dependence, cigarettes, uncomplicated; I10 Essential (primary) hypertension; F32.9 Major depressive disorder, single episode, unspecified; Z99.81 Dependence on supplemental oxygen; Z86.718 Personal history of other venous thrombosis and embolism; K21.9 Gastro-esophageal reflux disease without esophagitis; Z85.44 Personal history of malignant neoplasm of other female genital organs; K76.0 Fatty (change of) liver, not elsewhere classified; E87.6 Hypokalemia; G62.9 Polyneuropathy, unspecified
CPT/HCPCS: 36415; 36416; 36600; 71045; 71046; 71260; 80053; 80069; 81001; 82803; 83520; 83735; 83880; 84145; 84484; 85025; 85027; 86256; 87507; 87804; 92610; 93005; 93010; 94010; 94640; 94664; 94667; 94668; 94760; 94761; 96374; 97110; 97116; 97161; 97530; 98960; 99285-25; 99407; G8978; G8979; G8980; G8996; G8997; G8998; J0696; J1650; J1956; J2060; J2930; J3010; J3480; J7120; Q9967

== ENCOUNTER 2019-03-26 16:54 | Emergency (ER) | payer OTHER ==
[~2019-03-26] VITALS: Ht 160 cm; Wt 54.4 kg
[~2019-03-26 16:54] MED LIST changes: +BUDE.25 NEB; +IBUP600 PO; +Mucinex600 MG; +NIFE30ER PO; +PRED10; +SACC250C; +TYLENOL PM PO
== END 2019-03-26 18:00 | disposition home or self-care (01) ==
LOC: ER 16:54
DX: S80.811A Abrasion, right lower leg, initial encounter (principal); J44.9 Chronic obstructive pulmonary disease, unspecified; F41.9 Anxiety disorder, unspecified; F17.200 Nicotine dependence, unspecified, uncomplicated; Z88.8 Allergy status to other drugs, medicaments and biological substances; Z79.899 Other long term (current) drug therapy; Z79.52 Long term (current) use of systemic steroids; Z79.51 Long term (current) use of inhaled steroids; W54.8XXA Other contact with dog, initial encounter
CPT/HCPCS: 99283

== ENCOUNTER 2019-05-13 10:16 | Emergency (ER) | payer OTHER ==
[~2019-05-13] VITALS: Ht 154.9 cm; Wt 54.4 kg
[2019-05-13 10:58] LABS: BASOPHILS ABSOLUTE AUTO 0.04 K/mm3 (0.00-0.23); BASOPHILS PERCENT AUTO 1 % (0-2); EOSINOPHILS ABSOLUTE AUTO 0.31 K/mm3 (0.00-0.68); EOSINOPHILS PERCENT AUTO 4 % (0-6); Hematocrit 48.7 % (33.0-51.0); Hemoglobin 15.8 g/dL (11.5-16.0); IMMATURE GRAN ABSOLUTE AUTO 0.03 K/mm3 (0.00-0.10); IMMATURE GRAN PERCENT AUTO 0 % (0-1); LYMPHOCYTES ABSOLUTE AUTO 1.28 K/mm3 (0.84-5.20); LYMPHOCYTES PERCENT AUTO 17 % (21-46); MONOCYTES ABSOLUTE AUTO 0.45 K/mm3 (0.16-1.47); MONOCYTES PERCENT AUTO 6 % (4-13); Mean Corpuscular HGB 33.3 pg (26.0-34.0); Mean Corpuscular HGB Conc 32.4 g/dL (31.5-36.5); Mean Corpuscular Volume 103 fL (80-100); Mean Platelet Volume 12.4 fL (9.1-12.4); NEUTROPHILS ABSOLUTE AUTO 5.53 K/mm3 (1.96-9.15); NEUTROPHILS PERCENT AUTO 72 % (41-73); Platelet Count 177 K/mm3 (150-400); RDW Coefficient Variation 12.4 % (11.7-14.2); RDW Standard Deviation 46.7 fL (35.1-46.3); Red Blood Cell Count 4.75 M/mm3 (3.80-5.20); White Blood Cell Count 7.64 K/mm3 (4.00-11.30)
[2019-05-13 11:22] LABS: Alanine Aminotransfer (ALT/SGP 99 U/L (12-78); Albumin, Blood 3.8 g/dL (3.4-5.0); Alk Phos 141 U/L (50-136); Anion Gap 8 mmol/L (6-16); Aspartate Aminotrans (AST/SGOT 178 U/L (12-37); Bilirubin, Total 0.6 mg/dL (0.1-1.0); Blood Urea Nitrogen 5 mg/dL (8-24); Bun/Creatinine Ratio 9.7 (12.0-20.0); CO2, Blood 27 mmol/L (21-32); Calcium, Blood 8.5 mg/dL (8.5-10.1); Chloride, Blood 103 mmol/L (98-108); Creatinine, Blood 0.52 mg/dL (0.40-1.00); Glomerular Filtration Rate >60 (60-); Glucose, Blood 92 mg/dL (70-99); Potassium, Blood 3.2 mmol/L (3.5-5.5); Sodium, Blood 138 mmol/L (136-145); Total Protein, Blood 7.8 g/dL (6.4-8.2); Troponin I <0.015 ng/mL (0.000-0.040)
[2019-05-13] MEDS ORDERED: Prednisone20 MG PO (15:15)
[2019-05-13] MEDS ORDERED: BUDE.25 NEB (15:15)
[2019-05-13] MEDS ORDERED: ALBU2.5V5 INH (15:15)
[2019-05-13] MEDS ORDERED: XYZAL5 MG PO (16:17)
== END 2019-05-13 16:31 | disposition home or self-care (01) ==
LOC: ER 10:16
PROVIDERS: Emergency Medicine
DX: J44.1 Chronic obstructive pulmonary disease with (acute) exacerbation (principal); Z88.5 Allergy status to narcotic agent; Z88.8 Allergy status to other drugs, medicaments and biological substances; Z79.899 Other long term (current) drug therapy; Z79.52 Long term (current) use of systemic steroids; F41.9 Anxiety disorder, unspecified; F17.210 Nicotine dependence, cigarettes, uncomplicated
CPT/HCPCS: 36415; 71046; 80053; 84484; 85025; 93005; 93010; 94644; 96374; 99285-25; J2930

== ENCOUNTER 2019-08-03 10:39 | Emergency (ER) | payer OTHER ==
[~2019-08-03] VITALS: Ht 154.9 cm; Wt 55.3 kg
[~2019-08-03 10:39] MED LIST changes: +ALBU2.5V5 INH; +XYZAL5 MG PO
[2019-08-03] MEDS ORDERED: Norco 5-325 Ta1 EACH PO (12:57)
== END 2019-08-03 13:15 | disposition home or self-care (01) ==
LOC: ER 10:39
DX: S20.212A Contusion of left front wall of thorax, initial encounter (principal); J44.1 Chronic obstructive pulmonary disease with (acute) exacerbation; F41.9 Anxiety disorder, unspecified; F17.200 Nicotine dependence, unspecified, uncomplicated; Z88.5 Allergy status to narcotic agent; Z88.8 Allergy status to other drugs, medicaments and biological substances; Z79.899 Other long term (current) drug therapy; X58.XXXA Exposure to other specified factors, initial encounter
CPT/HCPCS: 71101; 93005; 93010; 94640; 99283-25

== ENCOUNTER → 2019-09-22 | Outpatient (CLI) | payer OTHER | END | disposition home or self-care (01) | LOC: LAB SHORT 11:30 → LAB 11:30 | DX: J47.9 Bronchiectasis, uncomplicated (principal); R05 Cough | CPT/HCPCS: 87070; 87077; 87186; 87205 ==

== ENCOUNTER → 2020-01-31 | Outpatient (CLI) | payer OTHER | LOC: LAB 13:14 → LAB SHORT 13:14 | DX: Z48.817 Encounter for surgical aftercare following surgery on the skin and subcutaneous tissue (principal); L57.0 Actinic keratosis; R60.0 Localized edema | CPT/HCPCS: 87070; 87077; 87147; 87186; 87205 ==

== ENCOUNTER → 2020-02-16 | Outpatient (CLI) | payer OTHER | LOC: LAB SHORT 18:01 → LAB 18:01 | DX: Z48.817 Encounter for surgical aftercare following surgery on the skin and subcutaneous tissue (principal); L08.9 Local infection of the skin and subcutaneous tissue, unspecified; R60.0 Localized edema | CPT/HCPCS: 87070; 87205 ==

== ENCOUNTER → 2020-10-17 | Outpatient (CLI) | payer OTHER | END | disposition home or self-care (01) | LOC: LAB SHORT 12:40 → LAB 12:40 | DX: L03.119 Cellulitis of unspecified part of limb (principal) | CPT/HCPCS: 87070; 87075; 87077; 87147; 87186; 87205 ==

== ENCOUNTER 2020-10-29 00:10 | Day surgery (SDC) | payer OTHER | END 2020-10-29 22:55 | disposition home or self-care (01) | LOC: WOUND 00:10 | DX: S91.302A Unspecified open wound, left foot, initial encounter (principal); J44.9 Chronic obstructive pulmonary disease, unspecified; I82.409 Acute embolism and thrombosis of unspecified deep veins of unspecified lower extremity; I73.9 Peripheral vascular disease, unspecified; F17.210 Nicotine dependence, cigarettes, uncomplicated; B19.20 Unspecified viral hepatitis C without hepatic coma | CPT/HCPCS: A9270; G0463 ==

== ENCOUNTER 2020-11-05 00:44 | Day surgery (SDC) | payer OTHER | END 2020-11-05 22:54 | disposition home or self-care (01) | LOC: WOUND 00:44 | DX: L97.422 Non-pressure chronic ulcer of left heel and midfoot with fat layer exposed (principal); L03.116 Cellulitis of left lower limb; I87.2 Venous insufficiency (chronic) (peripheral); I70.213 Atherosclerosis of native arteries of extremities with intermittent claudication, bilateral legs | CPT/HCPCS: A9270 ==

== ENCOUNTER 2020-11-13 00:47 | Day surgery (SDC) | payer OTHER | END 2020-11-13 22:39 | disposition home or self-care (01) | LOC: WOUND 00:47 | DX: L97.422 Non-pressure chronic ulcer of left heel and midfoot with fat layer exposed (principal); I87.2 Venous insufficiency (chronic) (peripheral); I70.213 Atherosclerosis of native arteries of extremities with intermittent claudication, bilateral legs; L03.116 Cellulitis of left lower limb | CPT/HCPCS: A9270 ==

== ENCOUNTER → 2020-11-13 | Outpatient (CLI) | payer OTHER | END | disposition home or self-care (01) | LOC: PLD 11:52 → LAB 11:52 → LAB SHORT 11:52 | DX: R05 Cough (principal) | CPT/HCPCS: 87070; 87205 ==

== ENCOUNTER 2020-11-20 00:55 | Day surgery (SDC) | payer OTHER | END 2020-11-20 22:52 | disposition home or self-care (01) | LOC: WOUND 00:55 | DX: L97.422 Non-pressure chronic ulcer of left heel and midfoot with fat layer exposed (principal); L03.116 Cellulitis of left lower limb; I87.2 Venous insufficiency (chronic) (peripheral); I70.213 Atherosclerosis of native arteries of extremities with intermittent claudication, bilateral legs | CPT/HCPCS: A9270 ==

== ENCOUNTER 2020-11-27 01:21 | Day surgery (SDC) | payer OTHER | END 2020-11-27 22:40 | disposition home or self-care (01) | LOC: WOUND 01:21 | DX: L97.422 Non-pressure chronic ulcer of left heel and midfoot with fat layer exposed (principal); I87.2 Venous insufficiency (chronic) (peripheral); I70.213 Atherosclerosis of native arteries of extremities with intermittent claudication, bilateral legs; L03.119 Cellulitis of unspecified part of limb | CPT/HCPCS: A9270 ==

== ENCOUNTER 2020-12-04 00:12 | Day surgery (SDC) | payer OTHER | END 2020-12-04 22:36 | disposition home or self-care (01) | LOC: WOUND 00:12 | DX: L97.422 Non-pressure chronic ulcer of left heel and midfoot with fat layer exposed (principal); L03.116 Cellulitis of left lower limb; I87.2 Venous insufficiency (chronic) (peripheral); I70.213 Atherosclerosis of native arteries of extremities with intermittent claudication, bilateral legs | CPT/HCPCS: A9270 ==

== ENCOUNTER 2020-12-11 00:16 | Day surgery (SDC) | payer OTHER | END 2020-12-11 23:21 | disposition home or self-care (01) | LOC: WOUND 00:16 | DX: L03.116 Cellulitis of left lower limb (principal); L97.422 Non-pressure chronic ulcer of left heel and midfoot with fat layer exposed; I87.2 Venous insufficiency (chronic) (peripheral); I70.213 Atherosclerosis of native arteries of extremities with intermittent claudication, bilateral legs | CPT/HCPCS: 87070; 87075; 87077; 87147; 87186; 87205; A9270 ==

== ENCOUNTER 2020-12-25 00:20 | Day surgery (SDC) | payer OTHER | END 2020-12-25 22:40 | disposition home or self-care (01) | LOC: WOUND 00:20 | DX: L97.422 Non-pressure chronic ulcer of left heel and midfoot with fat layer exposed (principal); L03.116 Cellulitis of left lower limb; I87.2 Venous insufficiency (chronic) (peripheral); I70.213 Atherosclerosis of native arteries of extremities with intermittent claudication, bilateral legs | CPT/HCPCS: A9270 ==

== ENCOUNTER 2021-01-01 03:29 | Day surgery (SDC) | payer OTHER | END 2021-01-01 23:03 | disposition home or self-care (01) | LOC: WOUND 03:29 | DX: L97.422 Non-pressure chronic ulcer of left heel and midfoot with fat layer exposed (principal); L03.116 Cellulitis of left lower limb; I87.2 Venous insufficiency (chronic) (peripheral); I70.213 Atherosclerosis of native arteries of extremities with intermittent claudication, bilateral legs; B95.61 Methicillin susceptible Staphylococcus aureus infection as the cause of diseases classified elsewhere | CPT/HCPCS: 87071; 87075; 87077; 87147; 87186; 87205; A9270 ==

== ENCOUNTER 2021-01-08 02:57 | Day surgery (SDC) | payer OTHER | END 2021-01-08 23:01 | disposition home or self-care (01) | LOC: WOUND 02:57 | DX: L03.116 Cellulitis of left lower limb (principal); L97.422 Non-pressure chronic ulcer of left heel and midfoot with fat layer exposed; I87.2 Venous insufficiency (chronic) (peripheral); I70.213 Atherosclerosis of native arteries of extremities with intermittent claudication, bilateral legs | CPT/HCPCS: A9270 ==

== ENCOUNTER 2021-01-22 02:19 | Day surgery (SDC) | payer OTHER | END 2021-01-22 22:46 | disposition home or self-care (01) | LOC: WOUND 02:19 | DX: L97.422 Non-pressure chronic ulcer of left heel and midfoot with fat layer exposed (principal); I87.2 Venous insufficiency (chronic) (peripheral); I70.213 Atherosclerosis of native arteries of extremities with intermittent claudication, bilateral legs; L03.116 Cellulitis of left lower limb | CPT/HCPCS: A9270 ==

== ENCOUNTER 2021-01-29 00:24 | Day surgery (SDC) | payer OTHER | END 2021-01-29 22:42 | disposition home or self-care (01) | LOC: WOUND 00:24 | DX: L03.116 Cellulitis of left lower limb (principal); L97.422 Non-pressure chronic ulcer of left heel and midfoot with fat layer exposed; I87.2 Venous insufficiency (chronic) (peripheral); I70.213 Atherosclerosis of native arteries of extremities with intermittent claudication, bilateral legs | CPT/HCPCS: A9270 ==

== ENCOUNTER 2021-02-05 04:40 | Day surgery (SDC) | payer OTHER | END 2021-02-05 22:56 | disposition home or self-care (01) | LOC: WOUND 04:40 | DX: L03.116 Cellulitis of left lower limb (principal); L97.422 Non-pressure chronic ulcer of left heel and midfoot with fat layer exposed; I70.213 Atherosclerosis of native arteries of extremities with intermittent claudication, bilateral legs | CPT/HCPCS: A9270 ==

== ENCOUNTER 2021-02-12 03:46 | Day surgery (SDC) | payer OTHER | END 2021-02-12 23:43 | disposition home or self-care (01) | LOC: WOUND 03:46 | DX: L03.116 Cellulitis of left lower limb (principal); L97.422 Non-pressure chronic ulcer of left heel and midfoot with fat layer exposed; I87.2 Venous insufficiency (chronic) (peripheral); I70.213 Atherosclerosis of native arteries of extremities with intermittent claudication, bilateral legs | CPT/HCPCS: A9270 ==

== ENCOUNTER 2021-02-19 04:17 | Day surgery (SDC) | payer OTHER | END 2021-02-19 22:44 | disposition home or self-care (01) | LOC: WOUND 04:17 | DX: L03.116 Cellulitis of left lower limb (principal); L97.422 Non-pressure chronic ulcer of left heel and midfoot with fat layer exposed; I70.213 Atherosclerosis of native arteries of extremities with intermittent claudication, bilateral legs; I87.2 Venous insufficiency (chronic) (peripheral) | CPT/HCPCS: A9270; Q4133 ==

== ENCOUNTER 2021-02-25 08:00 | Day surgery (SDC) | payer OTHER | END 2021-02-25 23:00 | disposition home or self-care (01) | LOC: WOUND 08:00 | DX: L97.422 Non-pressure chronic ulcer of left heel and midfoot with fat layer exposed (principal); I87.2 Venous insufficiency (chronic) (peripheral); I70.213 Atherosclerosis of native arteries of extremities with intermittent claudication, bilateral legs; L03.116 Cellulitis of left lower limb | CPT/HCPCS: G0463 ==

== ENCOUNTER 2021-03-05 04:11 | Day surgery (SDC) | payer OTHER | END 2021-03-05 23:50 | disposition home or self-care (01) | LOC: WOUND 04:11 | DX: L03.116 Cellulitis of left lower limb (principal); L97.422 Non-pressure chronic ulcer of left heel and midfoot with fat layer exposed; I87.2 Venous insufficiency (chronic) (peripheral); I70.213 Atherosclerosis of native arteries of extremities with intermittent claudication, bilateral legs | CPT/HCPCS: A9270 ==

== ENCOUNTER 2021-03-19 05:05 | Day surgery (SDC) | payer OTHER | END 2021-03-19 22:46 | disposition home or self-care (01) | LOC: WOUND 05:05 | DX: L97.422 Non-pressure chronic ulcer of left heel and midfoot with fat layer exposed (principal); L03.116 Cellulitis of left lower limb; I87.2 Venous insufficiency (chronic) (peripheral); I70.213 Atherosclerosis of native arteries of extremities with intermittent claudication, bilateral legs ==

== ENCOUNTER 2021-03-26 02:41 | Day surgery (SDC) | payer OTHER | END 2021-03-26 23:29 | disposition home or self-care (01) | LOC: WOUND 02:41 | DX: L97.422 Non-pressure chronic ulcer of left heel and midfoot with fat layer exposed (principal); I70.213 Atherosclerosis of native arteries of extremities with intermittent claudication, bilateral legs; L03.116 Cellulitis of left lower limb | CPT/HCPCS: G0463 ==

== ENCOUNTER → 2021-08-29 | Outpatient (CLI) | payer OTHER | END | disposition home or self-care (01) | LOC: LAB SHORT 11:47 | DX: R05.9 Cough, unspecified (principal) | CPT/HCPCS: 87070; 87205 ==

== ENCOUNTER 2021-11-14 09:17 | Inpatient (IN) | payer OTHER ==
[~2021-11-14] VITALS: Ht 154.9 cm; Wt 63.5 kg
[~2021-11-14 09:17] MED LIST changes: +CODACE30 PO; +Deltasone 10 mg10 MG PO
[2021-11-14 14:02] LABS: BASOPHILS ABSOLUTE AUTO 0.06 K/mm3 (0.00-0.23); BASOPHILS PERCENT AUTO 1 % (0-2); EOSINOPHILS ABSOLUTE AUTO 0.21 K/mm3 (0.00-0.68); EOSINOPHILS PERCENT AUTO 2 % (0-6); Hematocrit 50.2 % (33.0-51.0); Hemoglobin 16.4 g/dL (11.5-16.0); IMMATURE GRAN ABSOLUTE AUTO 0.01 K/mm3 (0.00-0.10); IMMATURE GRAN PERCENT AUTO 0 % (0-1); LYMPHOCYTES ABSOLUTE AUTO 2.24 K/mm3 (0.84-5.20); LYMPHOCYTES PERCENT AUTO 25 % (21-46); MONOCYTES ABSOLUTE AUTO 0.73 K/mm3 (0.16-1.47); MONOCYTES PERCENT AUTO 8 % (4-13); Mean Corpuscular HGB 31.9 pg (26.0-34.0); Mean Corpuscular HGB Conc 32.7 g/dL (31.5-36.5); Mean Corpuscular Volume 98 fL (80-100); Mean Platelet Volume 11.5 fL (9.1-12.4); NEUTROPHILS ABSOLUTE AUTO 5.62 K/mm3 (1.96-9.15); NEUTROPHILS PERCENT AUTO 63 % (41-73); Platelet Count 253 K/mm3 (150-400); RDW Coefficient Variation 13.3 % (11.7-14.2); RDW Standard Deviation 48.1 fL (35.1-46.3); Red Blood Cell Count 5.14 M/mm3 (3.80-5.20); White Blood Cell Count 8.87 K/mm3 (4.00-11.30)
[2021-11-14 14:26] LABS: Alanine Aminotransfer (ALT/SGP 12 U/L (12-78); Albumin, Blood 3.1 g/dL (3.4-5.0); Albumin/Globulin Ratio 0.8 (0.8-1.8); Alk Phos 99 U/L (50-136); Anion Gap 3 mmol/L (6-16); Aspartate Aminotrans (AST/SGOT 14 U/L (12-37); Bilirubin, Total 0.7 mg/dL (0.1-1.0); Blood Urea Nitrogen 7 mg/dL (8-24); Bun/Creatinine Ratio 13.4 (12.0-20.0); CO2, Blood 29 mmol/L (21-32); Calcium, Blood 9.3 mg/dL (8.5-10.1); Chloride, Blood 109 mmol/L (98-108); Creatinine, Blood 0.52 mg/dL (0.40-1.00); Globulin, Blood 3.8 g/dL (2.2-4.0); Glomerular Filtration Rate >60 (60-); Glucose, Blood 83 mg/dL (70-99); Potassium, Blood 3.8 mmol/L (3.5-5.5); Sodium, Blood 141 mmol/L (136-145); Total Protein, Blood 6.9 g/dL (6.4-8.2)
--- NOTE | 2021-11-14 19:15 | NUR ---
SHIFT SUMMARY PT ADMITTED FOR R FEMORAL NECK FRACTURE. PT IS TO HAVE SURGERY TOMORROW AND IS NPO AT MIDNIGHT. PT IS RESTING COMFORTABLY IN BED. COVID TEST DONE.
[2021-11-14 19:40] LABS: Influenza A, PCR NEGATIVE (NEGATIVE); Influenza B, PCR NEGATIVE (NEGATIVE); Resp Syncytial Virus, PCR NEGATIVE (NEGATIVE); SARS-Cov-2 (COVID-19) PCR, MMC NEGATIVE (NEGATIVE)
--- NOTE | 2021-11-15 05:36 | NUR ---
SUMMARY PT PAIN MANAGED WELL. PT HAS BEEN SLEEPING WELL T/OUT SHIFT. PT HAS BEEN NPO SINCE MIDNIGHT. PT CURRENTLY SLEEPING IN NO DISTRESS. CALL LIGHT IN REACH.
--- NOTE | 2021-11-15 09:44 | NUR ---
Spiritual Care - AD Request Pt. is in bed doing breathing treatments. Pt. welcomes my visit. Pt. is pleasant. Pt. is interested in going over Advanced Directive with her sons who are NOK. Went over the AD material with Pt. Pt. displayed evidence of understanding and agreement. Pt. verbalized gratitude for the spiritual care visit.
--- NOTE | 2021-11-15 17:54 | NUR ---
SHIFT SUMMARY PT S/P FOR R HIP REPAIR. DERMABOND DRESSING IN PLACE AND CDI. PT C/O INCREASED PAIN POST OP AND MEDICATED WITH FENTANYL WITH GOOD EFFECT. TOLERATING PO INTAKE WELL. VSS. WILL REPORT TO KEKE LOZANO.
--- NOTE | 2021-11-15 20:35 | NUR ---
PT IV PAIN MEDS NOT LASTING 4 HRS ORDERED AND PT REPORTS PO PERCOCET INEFFECTIVE FOR PAIN CONTROL. PT VERB SHE HAS ALREADY TAKEN PERCOCET BASELINE FOR LUMBAR DISC DZ AND GENERALIZED PAIN OF RECENT R HIP PAIN PRIOR TO ADMISSION. I CALLED DR HOLT AND RECEIVED ORDERS FOR CHANGE OF PO TO HYDROCODONE AND INCREASE IN FREQUENCY OF IV SUBLIMAZE.ALSO DCD PERCOCET.
--- NOTE | 2021-11-16 07:22 | NUR ---
SUMMARY PT VERB EFFECTIVE PAIN CONTROL.PENDING OOB WITH PT TODAY.VOIDING AND TOLERATING PO.
--- NOTE | 2021-11-16 09:48 | NUR ---
WORKING WITH PHYS. THERAPY.
[2021-11-16] MEDS ORDERED: Aspir 8181 MG PO (17:52)
--- NOTE | 2021-11-16 18:16 | NUR ---
DC'D HOME, DC INSTRUCTIONS GIVEN, VERBALIZED UNDERSTANDING, BOTH IV'S ON L ARM DC'D, CATHS INTACT.
--- NOTE | 2021-11-18 11:43 | NUR ---
Patient is a [facility] patient who was transferred to [facility] on 11/14/2021 due to right hip fracture. Patient discharged 11/16/2021 with resumption of home health orders. Gathered supporting documentation for resumption (face sheet, discharge order, med list, and H&P) and faxed to [facility] for review. No further interventions required. Luna Arroyo Referral Liaison
== END 2021-11-16 18:03 | disposition home health service (06) | DRG 522 ==
LOC: ER 09:17 → SURS 16:10
PROVIDERS: Orthopaedic Surgery; Physician Assistant; ADMIT Family Medicine
PROC: 0SR904A Replacement of Right Hip Joint with Ceramic on Polyethylene Synthetic Substitute, Uncemented, Open Approach (ICD-10-PCS; principal; 2021-11-15 12:30)
DX: S72.001A Fracture of unspecified part of neck of right femur, initial encounter for closed fracture (principal); F11.20 Opioid dependence, uncomplicated; E84.9 Cystic fibrosis, unspecified; Z20.822 Contact with and (suspected) exposure to COVID-19; R09.02 Hypoxemia; J44.9 Chronic obstructive pulmonary disease, unspecified; F41.9 Anxiety disorder, unspecified; M80.08XD Age-related osteoporosis with current pathological fracture, vertebra(e), subsequent encounter for fracture with routine healing; K21.9 Gastro-esophageal reflux disease without esophagitis; F17.210 Nicotine dependence, cigarettes, uncomplicated; W18.30XA Fall on same level, unspecified, initial encounter; Z88.5 Allergy status to narcotic agent; Z88.1 Allergy status to other antibiotic agents; Z79.899 Other long term (current) drug therapy; Z85.89 Personal history of malignant neoplasm of other organs and systems
CPT/HCPCS: 0241U; 36415; 71045; 72170; 73502; 73552; 73590; 73700; 80053; 85025; 93971; 94640; 94664; 94760; 94761; 96374; 96375; 97110; 97116; 97162; 97530; 99285-25; A9270; C1776; J0171; J0735; J1100; J1885; J2370; J2405; J2704; J2795; J3010

== ENCOUNTER 2021-12-05 11:24 | Emergency (ER) | payer OTHER ==
[~2021-12-05] VITALS: Ht 154.9 cm; Wt 63.5 kg
[~2021-12-05 11:24] MED LIST changes: +Aspir 8181 MG PO
[2021-12-05] MEDS ORDERED: Diflucan100 MG PO (12:12)
== END 2021-12-05 12:41 | disposition home or self-care (01) ==
LOC: ER 11:24
DX: R60.0 Localized edema (principal); Z88.8 Allergy status to other drugs, medicaments and biological substances; Z88.1 Allergy status to other antibiotic agents; Z88.5 Allergy status to narcotic agent; Z79.899 Other long term (current) drug therapy; Z79.82 Long term (current) use of aspirin; J44.9 Chronic obstructive pulmonary disease, unspecified; F17.200 Nicotine dependence, unspecified, uncomplicated
CPT/HCPCS: 93971; 99283-25

== ENCOUNTER 2022-02-04 03:30 | Day surgery (SDC) | payer OTHER ==
[~2022-02-04 03:30] MED LIST changes: +Diflucan100 MG PO
== END 2022-02-04 22:35 | disposition home or self-care (01) ==
LOC: WOUND 03:30
DX: T81.31XA Disruption of external operation (surgical) wound, not elsewhere classified, initial encounter (principal); S71.101D Unspecified open wound, right thigh, subsequent encounter; X58.XXXD Exposure to other specified factors, subsequent encounter; Z96.641 Presence of right artificial hip joint; F17.210 Nicotine dependence, cigarettes, uncomplicated; J44.9 Chronic obstructive pulmonary disease, unspecified; Z86.718 Personal history of other venous thrombosis and embolism; Z88.5 Allergy status to narcotic agent
CPT/HCPCS: 99406; A9270; G0463

== ENCOUNTER 2022-02-11 05:20 | Day surgery (SDC) | payer OTHER | END 2022-02-11 22:41 | disposition home or self-care (01) | LOC: WOUND 05:20 | DX: T81.31XA Disruption of external operation (surgical) wound, not elsewhere classified, initial encounter (principal); S71.101A Unspecified open wound, right thigh, initial encounter; Z96.641 Presence of right artificial hip joint; Z72.0 Tobacco use; Y83.8 Other surgical procedures as the cause of abnormal reaction of the patient, or of later complication, without mention of misadventure at the time of the procedure | CPT/HCPCS: 99406; A9270 ==

== ENCOUNTER 2022-02-18 01:28 | Day surgery (SDC) | payer OTHER | END 2022-02-18 23:00 | disposition home or self-care (01) | LOC: WOUND 01:28 | DX: T81.31XA Disruption of external operation (surgical) wound, not elsewhere classified, initial encounter (principal); S71.101D Unspecified open wound, right thigh, subsequent encounter; X58.XXXD Exposure to other specified factors, subsequent encounter; Z96.641 Presence of right artificial hip joint; Z72.0 Tobacco use | CPT/HCPCS: 99406; A9270 ==

== ENCOUNTER 2022-02-25 05:10 | Day surgery (SDC) | payer OTHER | END 2022-02-25 23:58 | disposition home or self-care (01) | LOC: WOUND 05:10 | DX: T81.31XD Disruption of external operation (surgical) wound, not elsewhere classified, subsequent encounter (principal); Z96.641 Presence of right artificial hip joint; Z72.0 Tobacco use | CPT/HCPCS: A9270; G0463 ==

== ENCOUNTER → 2022-03-04 | Day surgery (SDC) | payer OTHER | LOC: WOUND 03:19 | DX: T81.31XA Disruption of external operation (surgical) wound, not elsewhere classified, initial encounter (principal); Z96.641 Presence of right artificial hip joint; Z72.0 Tobacco use | CPT/HCPCS: 99406; A9270; G0463 ==

== ENCOUNTER 2022-03-18 01:07 | Day surgery (SDC) | payer OTHER | END 2022-03-18 23:47 | disposition home or self-care (01) | LOC: WOUND 01:07 | DX: T81.31XD Disruption of external operation (surgical) wound, not elsewhere classified, subsequent encounter (principal); Z72.0 Tobacco use | CPT/HCPCS: 99406; A9270; G0463 ==

== ENCOUNTER 2022-04-08 04:12 | Day surgery (SDC) | payer OTHER | END 2022-04-08 23:18 | disposition home or self-care (01) | LOC: WOUND 04:12 | DX: Z09 Encounter for follow-up examination after completed treatment for conditions other than malignant neoplasm (principal); I10 Essential (primary) hypertension; Z96.641 Presence of right artificial hip joint | CPT/HCPCS: G0463 ==

== ENCOUNTER 2022-04-15 08:11 | Day surgery (SDC) | payer OTHER ==
[~2022-04-15] VITALS: Ht 154.9 cm; Wt 55.0 kg
[2022-04-15] MEDS ORDERED: AZIT250 (08:56)
[2022-04-15] MEDS ORDERED: B-12500 MC2 (08:56)
[2022-04-15] MEDS ORDERED: BISA10S (08:56)
[2022-04-15] MEDS ORDERED: EPIPEN0.3 MG/0.3 (08:57)
[2022-04-15] MEDS ORDERED: DORN1IH (08:57)
[2022-04-15] MEDS ORDERED: Vitamin D1000 UNI1 (08:57)
[2022-04-15] MEDS ORDERED: FURO20 (08:58)
[2022-04-15] MEDS ORDERED: IBU800 MG (08:58)
[2022-04-15] MEDS ORDERED: POTA20PAC (08:59)
[2022-04-15] MEDS ORDERED: EPCLUSA 400 MG1 EAC1 (09:00)
[2022-04-15] MEDS ORDERED: PROM25 (09:00)
--- NOTE | 2022-04-15 09:10 | NUR ---
04/15/22 0910 Jen Garcia SCOPE USED ON BOTH FLEX SIGMOIDOSCOPY AND UPPER ENDO.
--- NOTE | 2022-04-15 09:20 | NUR ---
04/15/22 0920 RINA PETERSEN THREE ATTEMPTS AT IV. FIRST ATTEMPT BY MA IN R HAND INFILTRATED. SECOND ATTEMPT BY MA IN R WRIST INFLITRATED. THIRD ATTEMPT BY MA IN L HAND SUCESSFUL.
== END 2022-04-15 10:16 | disposition home or self-care (01) ==
LOC: ORSCSDS 08:11
PROVIDERS: Student in an Organized Health Care Education/Training Program
PROC: 0D758ZZ Dilation of Esophagus, Via Natural or Artificial Opening Endoscopic (ICD-10-PCS; principal; 2022-04-15 09:30)
PROC: 0DB48ZX Excision of Esophagogastric Junction, Via Natural or Artificial Opening Endoscopic, Diagnostic (ICD-10-PCS; principal; 2022-04-15 09:30)
PROC: 0DB68ZX Excision of Stomach, Via Natural or Artificial Opening Endoscopic, Diagnostic (ICD-10-PCS; principal; 2022-04-15 09:30)
PROC: 0DB58ZX Excision of Esophagus, Via Natural or Artificial Opening Endoscopic, Diagnostic (ICD-10-PCS; principal; 2022-04-15 09:30)
PROC: 0DBP8ZX Excision of Rectum, Via Natural or Artificial Opening Endoscopic, Diagnostic (ICD-10-PCS; principal; 2022-04-15 09:30)
DX: K21.00 Gastro-esophageal reflux disease with esophagitis, without bleeding (principal); R13.10 Dysphagia, unspecified; K22.2 Esophageal obstruction; K44.9 Diaphragmatic hernia without obstruction or gangrene; K29.70 Gastritis, unspecified, without bleeding; B18.2 Chronic viral hepatitis C; Z86.010 Personal history of colon polyps; Z85.048 Personal history of other malignant neoplasm of rectum, rectosigmoid junction, and anus; D12.8 Benign neoplasm of rectum; K62.1 Rectal polyp; K64.8 Other hemorrhoids; K64.4 Residual hemorrhoidal skin tags; J44.9 Chronic obstructive pulmonary disease, unspecified; I10 Essential (primary) hypertension; F17.210 Nicotine dependence, cigarettes, uncomplicated; Z79.899 Other long term (current) drug therapy
CPT/HCPCS: 88305; 88342; J2704; J7120

== ENCOUNTER → 2022-05-14 | Outpatient (CLI) | payer OTHER ==
[~2022-05-14] MED LIST changes: +AZIT250; +B-12500 MC2; +BISA10S; +DORN1IH; +EPCLUSA 400 MG1 EAC1; +EPIPEN0.3 MG/0.3; +FURO20; +IBU800 MG; +POTA20PAC; +PROM25; +Vitamin D1000 UNI1
== END | disposition home or self-care (01) ==
LOC: LAB 11:20 → LAB SHORT 11:20
DX: R05.9 Cough, unspecified (principal)
CPT/HCPCS: 87070; 87205

== ENCOUNTER → 2022-08-25 | Outpatient (CLI) | payer OTHER | LOC: PLD 13:51 → LAB SHORT 13:51 | DX: L81.4 Other melanin hyperpigmentation (principal); M79.89 Other specified soft tissue disorders | CPT/HCPCS: 88342 ==

== ENCOUNTER → 2022-11-07 | Outpatient (CLI) | payer OTHER | END | disposition home or self-care (01) | LOC: LAB SHORT 10:38 → LAB 10:38 | DX: R05.1 Acute cough (principal) | CPT/HCPCS: 87070; 87077; 87185; 87205 ==

== ENCOUNTER 2023-04-03 08:56 | Day surgery (SDC) | payer OTHER ==
[~2023-04-03] VITALS: Ht 154.9 cm; Wt 58.7 kg
[2023-04-03] MEDS ORDERED: STIOLTO RESPIMAT4 G1 (09:17)
[2023-04-03 10:48] VITALS: BP 106/68
== END 2023-04-03 10:46 | disposition home or self-care (01) ==
LOC: ORSCSDS 08:56 → ORD 10:15 → ORSCSDS 10:46
PROVIDERS: Internal Medicine Gastroenterology
PROC: 0DBP8ZX Excision of Rectum, Via Natural or Artificial Opening Endoscopic, Diagnostic (ICD-10-PCS; principal; 2023-04-03 10:15)
DX: Z85.44 Personal history of malignant neoplasm of other female genital organs (principal); K62.1 Rectal polyp; K64.8 Other hemorrhoids; J44.9 Chronic obstructive pulmonary disease, unspecified; E84.9 Cystic fibrosis, unspecified; B19.20 Unspecified viral hepatitis C without hepatic coma; F41.9 Anxiety disorder, unspecified; F43.10 Post-traumatic stress disorder, unspecified; F17.210 Nicotine dependence, cigarettes, uncomplicated; Z79.899 Other long term (current) drug therapy
CPT/HCPCS: 88305; J2704; J7120

== ENCOUNTER → 2023-04-16 | Outpatient (CLI) | payer OTHER ==
[~2023-04-16] MED LIST changes: +STIOLTO RESPIMAT4 G1
== END | disposition home or self-care (01) ==
LOC: LAB SHORT 12:50 → LAB 12:50
DX: R05.1 Acute cough (principal)
CPT/HCPCS: 87070; 87077; 87186; 87205

== ENCOUNTER → 2023-06-09 | Outpatient (CLI) | payer OTHER | END | disposition home or self-care (01) | LOC: LAB SHORT 12:15 → LAB 12:15 | DX: R05.1 Acute cough (principal) | CPT/HCPCS: 87070; 87077; 87186; 87205 ==

== ENCOUNTER → 2023-11-20 | Outpatient (CLI) | payer OTHER | LOC: LAB 10:54 → LAB SHORT 10:54 | DX: R05.1 Acute cough (principal) | CPT/HCPCS: 87070; 87077; 87186; 87205 ==

== ENCOUNTER → 2023-12-21 | Outpatient (CLI) | payer OTHER | END | disposition home or self-care (01) | LOC: LAB 12:10 → LAB SHORT 12:10 | DX: J44.1 Chronic obstructive pulmonary disease with (acute) exacerbation (principal) | CPT/HCPCS: 87070; 87077; 87186; 87205 ==

== ENCOUNTER 2024-07-11 19:02 | Emergency (ER) | payer OTHER ==
[~2024-07-11] VITALS: Ht 152.4 cm; Wt 54.4 kg
[~2024-07-11 19:02] MED LIST changes: +BUDE.25; +CREON DR 12,001 EACH; +Flonase 0.05% N16 GM; +ZYRTEC10 M2; +[UNRECOGNIZED DRUG - OTHER]
[2024-07-11 19:06] VITALS: BP 133/78
[2024-07-11 19:40] LABS: BASOPHILS PERCENT AUTO 1 % (0-2); EOSINOPHILS ABSOLUTE AUTO 0.12 K/mm3 (0.00-0.68); EOSINOPHILS PERCENT AUTO 1 % (0-6); Hematocrit 46.7 % (33.0-51.0); IMMATURE GRAN ABSOLUTE AUTO 0.05 K/mm3 (0.00-0.10); IMMATURE GRAN PERCENT AUTO 0 % (0-1); LYMPHOCYTES ABSOLUTE AUTO 4.86 K/mm3 (0.84-5.20); LYMPHOCYTES PERCENT AUTO 37 % (21-46); MONOCYTES ABSOLUTE AUTO 1.01 K/mm3 (0.16-1.47); MONOCYTES PERCENT AUTO 8 % (4-13); Mean Corpuscular HGB 33.8 pg (26.0-34.0); Mean Corpuscular HGB Conc 34.3 g/dL (31.5-36.5); Mean Corpuscular Volume 99 fL (80-100); Mean Platelet Volume 11.9 fL (9.1-12.4); NEUTROPHILS ABSOLUTE AUTO 7.06 K/mm3 (1.96-9.15); NEUTROPHILS PERCENT AUTO 53 % (41-73); Platelet Count 271 K/mm3 (150-400); RDW Coefficient Variation 13.8 % (11.7-14.2); RDW Standard Deviation 50.8 fL (35.1-46.3); Red Blood Cell Count 4.74 M/mm3 (3.80-5.20)
[2024-07-11 20:15] LABS: Influenza A, PCR NEGATIVE (NEGATIVE); Influenza B, PCR NEGATIVE (NEGATIVE); Resp Syncytial Virus, PCR NEGATIVE (NEGATIVE); SARS-Cov-2 (COVID-19) PCR, MMC NEGATIVE (NEGATIVE)
[2024-07-11 20:32] LABS: Albumin, Blood 3.6 g/dL (3.4-5.0); Albumin/Globulin Ratio 1.1 (0.8-1.8); Bilirubin, Total 0.2 mg/dL (0.1-1.0); Calcium, Blood 8.4 mg/dL (8.5-10.1); Creatinine, Blood 0.55 mg/dL (0.40-1.00); Globulin, Blood 3.2 g/dL (2.2-4.0); Potassium, Blood 3.1 mmol/L (3.5-5.5); Total Protein, Blood 6.8 g/dL (6.4-8.2)
[2024-07-11] MEDS ORDERED: Potassium Chloride 20 MEQ TabCR PO ONE (21:00)
== END 2024-07-11 21:39 | disposition home or self-care (01) ==
LOC: ER 19:02
PROVIDERS: Emergency Medicine
DX: J44.9 Chronic obstructive pulmonary disease, unspecified (principal); F10.929 Alcohol use, unspecified with intoxication, unspecified; Y90.8 Blood alcohol level of 240 mg/100 ml or more; Z85.89 Personal history of malignant neoplasm of other organs and systems; Z88.8 Allergy status to other drugs, medicaments and biological substances; Z88.1 Allergy status to other antibiotic agents; Z88.5 Allergy status to narcotic agent; Z79.899 Other long term (current) drug therapy
CPT/HCPCS: 0241U; 71046; 80053; 80320; 83880; 84145; 84484; 85025; 93005; 93010; 99285-25; A9270

== ENCOUNTER 2024-10-17 11:01 | Emergency (ER) | payer OTHER ==
[~2024-10-17] VITALS: Ht 152.4 cm; Wt 55.8 kg
[2024-10-17 11:09] VITALS: BP 181/96
[2024-10-17 11:40] LABS: BASOPHILS ABSOLUTE AUTO 0.07 K/mm3 (0.00-0.23); BASOPHILS PERCENT AUTO 1 % (0-2); EOSINOPHILS ABSOLUTE AUTO 0.32 K/mm3 (0.00-0.68); EOSINOPHILS PERCENT AUTO 3 % (0-6); Hematocrit 48.1 % (33.0-51.0); Hemoglobin 16.1 g/dL (11.5-16.0); IMMATURE GRAN ABSOLUTE AUTO 0.07 K/mm3 (0.00-0.10); IMMATURE GRAN PERCENT AUTO 1 % (0-1); LYMPHOCYTES PERCENT AUTO 30 % (21-46); MONOCYTES ABSOLUTE AUTO 1.18 K/mm3 (0.16-1.47); MONOCYTES PERCENT AUTO 10 % (4-13); Mean Corpuscular HGB 33.1 pg (26.0-34.0); Mean Corpuscular HGB Conc 33.5 g/dL (31.5-36.5); Mean Corpuscular Volume 99 fL (80-100); Mean Platelet Volume 11.2 fL (9.1-12.4); NEUTROPHILS PERCENT AUTO 56 % (41-73); Platelet Count 230 K/mm3 (150-400); RDW Coefficient Variation 14.6 % (11.7-14.2); RDW Standard Deviation 52.9 fL (35.1-46.3); Red Blood Cell Count 4.86 M/mm3 (3.80-5.20); White Blood Cell Count 11.64 K/mm3 (4.00-11.30)
[2024-10-17 12:41] LABS: Bilirubin, Total 0.4 mg/dL (0.1-1.0); Bun/Creatinine Ratio 17.6 (12.0-20.0); Calcium, Blood 9.1 mg/dL (8.5-10.1); Creatinine, Blood 0.74 mg/dL (0.40-1.00); Globulin, Blood 3.9 g/dL (2.2-4.0); Potassium, Blood 3.6 mmol/L (3.5-5.5); Total Protein, Blood 7.9 g/dL (6.4-8.2)
[2024-10-17] MEDS ORDERED: Sodium Chloride 3% For Inhalation 15 ML VIAL.NEB INH ONE (13:00)
[2024-10-17 14:01] LABS: CORONAVIRUS COVID-19 AG Negative (NEGATIVE); INFLUENZA A AG Negative (NEGATIVE); INFLUENZA B AG Negative (NEGATIVE)
[2024-10-17] MEDS ORDERED: PRED20 PO (14:28)
[2024-10-17] MEDS ORDERED: PredniSONE 20 MG Tab PO ONE (14:30)
== END 2024-10-17 14:36 | disposition home or self-care (01) ==
LOC: ER 11:01
PROVIDERS: Physician Assistant; Student in an Organized Health Care Education/Training Program
DX: J06.9 Acute upper respiratory infection, unspecified (principal); E84.9 Cystic fibrosis, unspecified; J44.9 Chronic obstructive pulmonary disease, unspecified; F17.210 Nicotine dependence, cigarettes, uncomplicated; Z88.8 Allergy status to other drugs, medicaments and biological substances; Z88.1 Allergy status to other antibiotic agents; Z88.5 Allergy status to narcotic agent; Z79.899 Other long term (current) drug therapy; Z79.51 Long term (current) use of inhaled steroids; Z79.52 Long term (current) use of systemic steroids
CPT/HCPCS: 71046; 80053; 85025; 87428-QW; 94640; 94664; 99284-25; A9270; J7512

== ENCOUNTER → 2025-04-11 | Outpatient (CLI) | payer OTHER | END | disposition home or self-care (01) | LOC: LAB SHORT 11:28 → LAB 11:28 | DX: J47.0 Bronchiectasis with acute lower respiratory infection (principal) | CPT/HCPCS: 87070; 87077; 87186; 87205 ==